=== PATIENT | female | born 1950 | race Caucasian/White ===

== ENCOUNTER 2019-09-09 10:07 | Outpatient (CLI) | payer MEDICARE, SELFPAY ==
--- NOTE | 2019-09-09 10:18 | USCV_ITS ---
Sybil Perry Age: 68 Gender: F : 1950 Exam Date: 09/09/2019 10:33 Ordering Phys: Zeina Toledo MD Technologist: Hamzah Guardado Exam Location: [facility] Indication: MURMUR BP: 122 / 82 HR: 57 Rhythm: Sinus Technical Quality: Good MEASUREMENTS (Male / Female) Normal Values 2D ECHO LV Diastolic Diameter PLAX 3.4 cm 4.2 - 5.9 / 3.9 - 5.3 cm LV Systolic Diameter PLAX 1.8 cm IVS Diastolic Thickness 0.8 cm 0.6 - 1.0 / 0.6 - 0.9 cm IVS Systolic Thickness 1.0 cm LVPW Diastolic Thickness 0.6 cm 0.6 - 1.0 / 0.6 - 0.9 cm LVPW Systolic Thickness 0.9 cm LVOT Diameter 2.1 cm LV Ejection Fraction 2D Teich 78.6 % LV Ejection Fraction MOD 2C 74.3 % LV Ejection Fraction 2C AL 74.3 % LA Diameter 4.2 cm LA Width 3.1 cm LA Height 4.3 cm RA Width 3.1 cm RA Height 3.7 cm Aorta at Sinotubular Diameter 3.5 cm M-MODE LV Diastolic Diameter MM 4.5 cm 4.2 - 5.9 / 3.9 - 5.3 cm LV Systolic Diameter MM 2.7 cm LV Ejection Fraction MM Teich 71.4 % IVS Diastolic Thickness MM 1.3 cm 0.6 - 1.0 / 0.6 - 0.9 cm IVS Systolic Thickness MM 1.6 cm LVPW Diastolic Thickness MM 1.1 cm 0.6 - 1.0 / 0.6 - 0.9 cm LVPW Systolic Thickness MM 1.6 cm RV Diastolic Diameter MM 1.4 cm Aortic Annulus Diameter 3.5 cm LA Ao Ratio MM 1.2 MV E Point Septal Separation 0.8 cm DOPPLER AV Peak Velocity 109.0 cm/s LVOT Peak Velocity 95.0 cm/s AV Area Cont Eq vti 2.7 cm squared AV Area Cont Eq pk 2.9 cm squared MV Area PHT 5.0 cm squared Mitral E to A Ratio 1.1 MV E' Velocity 9.0 cm/s Mitral E to MV E' Ratio 8.8 Mitral E to LV E' Lateral Ratio 9.2 Mitral E to LV E' Septal Ratio 8.4 TR Peak Velocity 109.0 cm/s TR Peak Gradient 4.7 mmHg TV Peak E Velocity 108.0 cm/s Right Atrial Pressure 3.0 mmHg Pulmonary Artery Systolic Pressu 7.8 mmHg PV Peak Velocity 72.0 cm/s FINDINGS Left Ventricle Normal left ventricular size and systolic function, EF 66 %. No regional wall motion abnormalities. Right Ventricle Possibly normal size ejection fraction Right Atrium Appears to be of normal size Left Atrium Appears to be of normal size Mitral Valve Thickened mitral valve. Mild mitral valve regurgitation. Aortic Valve Thickened aortic valve. Trace aortic valve regurgitation. Tricuspid Valve No gross abnormalities noted Pulmonic Valve No gross abnormalities noted Pericardium No pericardial effusion. Aorta Normal aortic annulus size. CONCLUSIONS Normal left ventricular size and systolic function, EF 66 %. No regional wall motion abnormalities. Thickened mitral valve. Mild mitral valve regurgitation. Thickened aortic valve. Trace aortic valve regurgitation. There is no pericardial effusion. There are no intracardiac masses. No previous study is available for comparison. Technically somewhat difficult study because of the poor ultrasonic window. Dr Sunni Rangel MD FACC (Electronically Signed) Final Date: 10 September 2019 13:56 S
== END 2019-09-09 10:08 | disposition home or self-care (01) ==
LOC: RAD 10:12
PROVIDERS: Family Provider Family Medicine; Visit Provider Family Medicine
DX: I08.0 Rheumatic disorders of both mitral and aortic valves (principal); R01.1 Cardiac murmur, unspecified
CPT/HCPCS: 93306

== ENCOUNTER 2020-09-06 12:46 | Outpatient (CLI) | payer MEDICARE, SELFPAY ==
--- NOTE | 2020-09-06 12:57 | MM_ITS ---
WS: [id number] BILATERAL DIGITAL SCREENING MAMMOGRAPHY WITH CAD CLINICAL INFORMATION: SCREENING HISTORY: Screening mammogram. No current complaints. COMPARISON: TECHNIQUE: Bilateral CC and MLO views. FINDINGS: Scattered fibroglandular densities bilaterally. No suspicious focal mass, asymmetry, calcifications, or architectural distortion. No evidence of malignancy. Vascular calcification. MM/[place] [id number] IMPRESSION: BI-RADS: 2-Benign FOLLOW UP: 1 Year Follow-up Recommend return to annual screening mammography.
== END 2020-09-06 12:47 | disposition home or self-care (01) ==
LOC: RADSHAW 12:50
PROVIDERS: Family Provider Family Medicine; PCP Family Medicine; Visit Provider Family Medicine
DX: Z12.31 Encounter for screening mammogram for malignant neoplasm of breast (principal)
CPT/HCPCS: 77067

== ENCOUNTER 2021-12-28 09:49 | Outpatient (CLI) | payer MEDICARE, SELFPAY ==
--- NOTE | 2021-12-28 13:19 | PFTS_ITS ---
Date of Study:12/28/21 Date of Dictation:12/29/2021 MECHANICS: Prebronchodilator forced vital capacity (FVC) is normal. Prebronchodilator forced expiratory volume in one second (FEV1) is normal. FEV1/FVC is normal. There is no postbronchodilator study. LUNG VOLUMES: Total lung capacity (TLC) is normal. Residual volume (RV) is normal. DIFFUSING CAPACITY FOR CARBON MONOXIDE: Normal . INTERPRETATION: The pulmonary function tests are normal. MTDD
== END 2021-12-28 09:50 | disposition home or self-care (01) ==
PROVIDERS: PCP Family Medicine; Visit Provider Family Medicine
DX: R06.02 Shortness of breath (principal)
CPT/HCPCS: 94010; 94726; 94729

== ENCOUNTER 2022-05-30 10:27 | Outpatient (CLI) | payer MEDICARE, SELFPAY ==
--- NOTE | 2022-05-30 10:43 | MM_ITS ---
WS: [id number] BILATERAL SCREENING DIGITAL TOMOSYNTHESIS MAMMOGRAM WITH CAD HISTORY: SCREENING COMPARISON: 09/06/2020, 03/23/2019 Bilateral CC and MLO views with tomosynthesis and synthetic mammography submitted. Computer aided det ection analyzed. Breast composition: There are scattered areas of fibroglandular density. No suspicious masses, microc alcifications or architectural distortion. MM/[id number] IMPRESSION: BI-RADS: 1-Negative FOLLOW UP: 1 Year Follow-up
== END 2022-05-30 10:28 | disposition home or self-care (01) ==
LOC: RAD 10:28
PROVIDERS: PCP Family Medicine; Visit Provider Family Medicine
DX: Z12.31 Encounter for screening mammogram for malignant neoplasm of breast (principal)
CPT/HCPCS: 77063; 77067

== ENCOUNTER → 2022-10-29 15:24 | Outpatient (BNVA) | payer MEDICARE, SELFPAY | PROVIDERS: PCP Family Medicine; Visit Provider Dermatology | DX: R21 Rash and other nonspecific skin eruption (principal) | CPT/HCPCS: 88305; 88312 ==

== ENCOUNTER 2022-11-01 07:22 | Outpatient (CLI) | payer MEDICARE, SELFPAY ==
[2022-11-01 07:52] LABS: Basophils # 0.1 10^3/uL (0.0-0.1); Basophils % 0.8 %; Eosinophils # 0.3 10^3/uL (0.0-0.8); Eosinophils % 3.8 %; Hematocrit 47.1 % (37.0-47.0); Hemoglobin 14.8 g/dL (11.5-15.3); Lymphocytes # 2.4 10^3/uL (0.8-4.8); Lymphocytes % 30.9 %; Mean Corpuscular HGB Conc 31.4 g/dL (30.0-36.0); Mean Corpuscular Hemoglobin 29.2 pg (28.0-34.0); Mean Corpuscular Volume 92.9 fl (81-99); Mean Platelet Volume 10.2 fL (7.4-10.4); Monocytes # 0.6 10^3/uL (0.2-0.9); Neutrophils # 4.29 10^3/uL (1.8-7.7); Neutrophils % 56.2 %; Nucleated Red Blood Cells % 0 %; Platelet Count 226 10^3/cmm (130-400); Red Blood Count 5.07 10^6/uL (4.1-5.3); Red Cell Distribution Width 12.6 % (12.1-15.1); White Blood Count 7.6 10^3/uL (4.0-10.0)
[2022-11-01 08:18] LABS: Alanine Aminotransferase 33 U/L (0-33); Albumin Level 3.9 g/dL (3.5-5.2); Alkaline Phosphatase 93 U/L (35-105); Anion Gap 12.3 (5-19); Aspartate Amino Transferase 27 U/L (0-32); Blood Urea Nitrogen 12 mg/dL (8-23); Calcium 9.4 mg/dL (8.5-10.5); Carbon Dioxide 29 mmol/L (22-29); Chloride 102 mmol/L (98-107); Glomerular Filtration Rate 61.9 mL/min (90-130); Glucose 107 mg/dL (65-115); Osmolality Calculated 288 mOsm/kg (285-295); Potassium 4.3 mmol/L (3.5-5.1); Sodium 139 mmol/L (136-145); Thyroid Stimulating Hormone 2.13 uIU/mL (0.27-4.20); Total Bilirubin 0.4 mg/dL (0.15-1.2); Total Protein 6.9 g/dL (6.6-8.7)
[2022-11-02 14:08] LABS: COMPLEMENT, TOTAL (CH50) 50 U/mL (31-60)
[2022-11-02 15:00] LABS: CENTROMERE B ANTIBODY <1.0 NEG AI (<1.0 NEG); JO-1 ANTIBODY <1.0 NEG AI (<1.0 NEG); RNP ANTIBODY <1.0 NEG AI (<1.0 NEG); SCL-70 ANTIBODY <1.0 NEG AI (<1.0 NEG); SJOGREN'S ANTIBODY (SS-A) <1.0 NEG AI (<1.0 NEG); SM ANTIBODY <1.0 NEG AI (<1.0 NEG); SS-B <1.0 NEG AI (<1.0 NEG)
[2022-11-02 15:05] LABS: COMPLEMENT COMPONENT C3C 157 mg/dL (83-193); COMPLEMENT COMPONENT C4C 64 mg/dL (15-57)
[2022-11-02 15:30] LABS: THYROID PEROXIDASE ANTIBODIES 65 IU/mL (<9)
[2022-11-05 11:00] LABS: ANA SCREEN, IFA POSITIVE (NEGATIVE); Anti-Nuclear AB Pattern #2 Nuclear, Homogeneous; Anti-Nuclear Antibody Titer #2 1:40 titer
[2022-11-06 10:33] LABS: DNA AB (DS) CRITHIDIA,IFA NEGATIVE (NEGATIVE)
== END 2022-11-01 07:23 | disposition home or self-care (01) ==
PROVIDERS: PCP Family Medicine; Visit Provider Dermatology
DX: L29.9 Pruritus, unspecified (principal); R21 Rash and other nonspecific skin eruption; R53.83 Other fatigue
CPT/HCPCS: 36415; 80053; 84439; 84443; 85025; 86160; 86162; 86235; 86255; 86376

== ENCOUNTER → 2023-02-13 13:03 | Outpatient (BNVA) | payer MEDICARE, SELFPAY | PROVIDERS: PCP Family Medicine; Visit Provider Dermatology | DX: L23.9 Allergic contact dermatitis, unspecified cause (principal); D23.71 Other benign neoplasm of skin of right lower limb, including hip; L82.1 Other seborrheic keratosis; D89.89 Other specified disorders involving the immune mechanism, not elsewhere classified; L27.0 Generalized skin eruption due to drugs and medicaments taken internally; L81.4 Other melanin hyperpigmentation | CPT/HCPCS: 99213 ==

== ENCOUNTER 2023-02-23 21:59 | Emergency (ER) | payer MEDICARE, SELFPAY ==
[2023-02-23 22:09] VITALS: BP 198/100; PULSE 57; RESP 22; TEMP 36.1; O2SAT 99; BMI 35.0
--- NOTE | 2023-02-23 22:16 | ECG_ITS ---
[facility] Test Date: 2023-02-23 Pat Name: Sybil Perry Department: Room: Gender: Female Leak Hunter: : 1950 Requested By: Nickolas Manzo Order Number: [id number] Cedric MD: Sunni Rangel M.D. Measurements Intervals [place] Rate: 60 P: -43 CT: 153 QRS: 59 QRSD: 89 T: 72 QT: 408 QTc: 409 Interpretive Statements SINUS RHYTHM No previous ECG available for comparison Electronically Signed On 02-24-2023 14:47:15 CDT by Sunni Rangel M.D. [id number]
--- NOTE | 2023-02-23 22:32 | XRR_ITS ---
PROCEDURE INFORMATION: Exam: XR Chest Exam date and time: 02/23/2023 10:39 PM Age: 72 years old Clinical indication: Pain; Chest pressure; Additional info: Chest pain TECHNIQUE: Imaging protocol: Radiologic exam of the chest. Views: 1 view. COMPARISON: CR XR chest 2V* [id number] 10/22/2016 3:47 PM FINDINGS: Lungs: Lungs are clear bilaterally. Pleural spaces: No pleural effusion. No pneumothorax. Heart/Mediastinum: Stable mild enlargement of the cardiac silhouette. Mediastinal contours are unremarkable. Vasculature: Stable vascular calcifications in the aorta. Bones/joints: Unremarkable for age. XR/XR chest 1V portable [id number] IMPRESSION: 1. No acute cardiopulmonary process. 2. Incidental/nonacute findings are listed in the report.
--- NOTE | 2023-02-23 22:35 | W.ED.CHESTPA ---
HPI - Chest Pain General: Chief Complaint: Chest Pain Stated Complaint: Pain Between her breast Time Seen by Provider: 02/23/23 22:32 History of Present Illness: 72-year-old female comes in today with chest discomfort. Patient reports pain is upper mid epigastric or low sternal pain. Pain is reproducible with palpation in the mid upper abdomen. Patient appears nontoxic. Patient appears in moderate pain. Patient has a history of hypertension, GERD, and high cholesterol. Patient denies smoking, diabetes, alcohol or drug use. Patient reports no abdominal surgeries. Associated symptoms: Reports nausea; Deny dyspnea, fever(s) or vomiting Review of Systems General: Reports: 10 or more systems reviewed and unremarkable except in HPI and below Const: Denies: fever(s) or chills Card: Reports: chest pain Resp: Denies: dyspnea GI: Reports: nausea; Denies: vomiting, diarrhea or constipation : Denies: difficulty voiding Musc: Denies: back pain Skin/Breast: Denies: rash PFSH ED PFSH: Medical History Hypertension Physical Exam Const: COMMON NORMALS: alert HENMT: COMMON NORMALS: normocephalic HEAD & SCALP: normocephalic Neck/C-Spine: COMMON NORMALS: full ROM Chest: COMMONS NORMALS: normal inspection of the chest CHEST: Yes tenderness (Lower midsternal) sternum Resp: COMMON NORMALS: normal respiratory effort and clear to auscultation bilaterally AUSCULTATION: clear to auscultation bilaterally Cardio: COMMON NORMALS: regular rate and regular rhythm RATE: regular rate RHYTHM: regular rhythm GI: AUSCULTATION: Yes normoactive bowel sounds PALPATION: Yes Tenderness to palpation present (GI) (Midepigastric) : COMMON NORMALS: Yes no CVA tenderness BLADDER/KIDNEY EXAM: Yes no CVA tenderness Back/Pelvis: COMMON NORMALS: no CVA tenderness Extremity: COMMON NORMALS: full ROM Neuro: SENSORIUM/ORIENTATION: Yes alert Skin: COMMON NORMALS: turgor normal GENERAL SKIN EXAM: turgor normal Course Vital Signs: Vital signs: Vital Signs Temperature 97.0 F L 02/23/23 22:09 Pulse Rate 59 L 02/24/23 01:35 Respiratory Rate 16 02/24/23 01:35 Blood Pressure 135/76 02/24/23 01:35 Pulse Oximetry 95 02/24/23 01:35 Oxygen Delivery Me thod Room Air 02/23/23 22:09 MDM - Chest Pain Medical Decision Making 72-year-old female was brought in today for concerns of sternal chest discomfort and upper abdomen pain. Patient reports symptoms started this evening about 1 to 2 hours prior to arrival. Nothing improves pain and nothing made it worse. Patient reported the pain was like pressure in the chest. Respirations were even lungs are clear to auscultation. Abdomen was soft with some mid epigastric tenderness. Bowel sounds were present. Skin was warm and dry. Vital signs were normal except for elevation in blood pressure. Differential diagnosis includes but not limited to hiatal hernia, gastritis, pancreatitis, gallbladder disease, PE, ACS. Laboratory values had some mild increase in the AST's and alkaline phosphatase, sodium was 132, creatinine was 1.0. Urinalysis was unremarkable. Troponin was negative for cardiac damage. Chest x-ray was unremarkable. CT of the chest and abdomen noted some atelectasis in the lung mirza, distended gallbladder, and some abnormal thickened endometrial stripe with a 2.5 cm cyst in the left adnexa this is concerning for possible malignancy and recommend follow-up with [employer] [facility] and ultrasound. This was reviewed with patient who reported understanding of plan of care. Case management was requested to help patient follow-up with [employer] [facility] due to the abnormalities on the CT of the pelvis and concerns for uterine carcinoma. Also recommended follow-up with surgeon for further evaluation of gallbladder for possible gallbladder colic and dysfunction. Patient reported understanding agreed to plan. Lab Data 02/23/23 22:35 02/23/23 22:35 Radiology Impressions Chest X-Ray 02/23/23 22:32 IMPRESSION: 1. No acute cardiopulmonary process. 2. Incidental/nonacute findings are listed in the report. Chest/Abdomen/Pelvis CT 02/24/23 00:11 IMPRESSION: 1. No pulmonary embolus. 2. Minimal infiltrates or atelectasis bilaterally in the lower lobes. Correlate for pneumonia. IMPRESSION: Abnormally thickened endometrial stripe measuring 3.4 cm suspicious for malignancy. There is also a 2.5 cm cyst in the left adnexa. These are abnormal in a patient of this age and further assessment with pelvic ultrasound is recommended for follow-up. Laboratory Results WBC 8.6 10^3/uL (4.0-10.0) 02/23/23 22: RBC 4.85 10^6/uL (4.1-5.3) 02/23/23 22:35 Hgb 14.2 g/dL (11.5-15.3) 02/23/23 22:35 Hct 43.8 % (37.0-47.0) 02/23/23 22:35 MCV 90.3 fl (81-99) 02/23/23 22:35 MCH 29.3 pg (28.0-34.0) 02/23/23 22: MCHC 32.4 g/dL (30.0-36.0) 02/23/23: RDW 12.6 % (12.1-15.1) 02/23/23:35 Plt Count 184 10^3/cmm (130-400) 02/23/23 22: MPV 10.1 fL (7.4-10.4) 02/23/23 22:35 Neut % (Auto) 63.7 % 02/23/23 22:35 Lymph % (Auto) 25.4 % 02/23/23 22:35 [place] % (Auto) 7.0 % 02/23/23 22:35 Eos % (Auto) 2.9 % 02/23/23 22:35 Baso % (Auto) 0.6 % 02/23/23:35 Neut # (Auto) 5.46 10^3/uL (1.8-7.7) 02/23/23 22:35 Lymph # (Auto) 2.2 10^3/uL (0.8-4.8) 02/23/23 22:35 [place] # (Auto) 0.6 10^3/uL (0.2-0.9) 02/23/23 22:35 Eos # (Auto) 0.3 10^3/uL (0.0-0.8) 02/23/23 22:35 Baso # (Auto) 0.1 10^3/uL (0.0-0.1) 02/23/23 22:35 Nucleated RBC % (auto) 0 % 02/23/23:35 Nucleated RBCs # 0.0 /100WBC 02/23/23 22:35 Sodium 132 mmol/L (136-145) L 02/23/23 22:35 Potassium 4.0 mmol/L (3.5-5.1) 02/23/23 22:35 Chloride 97 mmol/L (98-107) L 02/23/23 22:35 Carbon Dioxide 27 mmol/L (22-29) 02/23/23 22:35 Anion Gap 12.0 (5-19) 02/23/23 22:35 BUN 17 mg/dL (8-23) 02/23/23 22:35 Creatinine 1.0 mg/dL (0.5-0.9) H 02/23/23 22:35 GFR Calculation Not Reportable 02/23/23 22:35 Glucose 111 mg/dL (65-115) 02/23/23 22:35 Calculated Osmolality 276 mOsm/kg (285-295) L 02/23/23 22:35 Calcium 8.9 mg/dL (8.5-10.5) 02/23/23 22:35 Total Bilirubin 0.2 mg/dL (0.15-1.2) 02/23/23 22:35 AST 28 U/L (0-32) 02/23/23 22:35 ALT 36 U/L (0-33) H 02/23/23 22:35 Alkaline Phosphatase 108 U/L (35-105) H 02/23/23 22:35 Troponin T Baseline 7 ng/L (0-10) 02/23/23 22:35 Troponin T 120 Minute 6.29 ng/L (0-10) 02/24/23 00:12 Delta Troponin T -0.71 ABS# (0-10) L 02/24/23 00:12 Total Protein 6.8 g/dL (6.6-8.7) 02/23/23 22:35 Albumin 4.1 g/dL (3.5-5.2) 02/23/23 22:35 Globulin 2.7 g/dL (1.3-4.6) 02/23/23 22:35 Lipase 23 U/L (13-60) 02/23/23 22:35 Discharge Plan Discharge Patient Disposition: Home Clinical Impression: Dysfunctional gallbladder, Abnormal abdominal CT scan Condition: Stable Prescriptions: New dicyclomine 10 mg capsule 10 mg PO QID PRN (Reason: gall bladder discomfort) Qty: 20 0RF No Action metoprolol succinate 100 mg tablet extended release 24 hr 100 mg PO DAILY omeprazole 20 mg capsule,delayed release(DR/EC) 20 mg PO DAILY triamcinolone acetonide 0.1 % ointment 1 applic topical BID Qty: 80 1RF Rx Instructions: apply to affected area twice a day, not for face or groin. Discharge Orders: Discharge ED (Routine); Ordered 02/24/23 Ordered By: Georges Valdez Referrals: Zeina Toledo MD [Primary Care Provider] - Discharge Diet: Usual diet Discharge Activity: Increase activity as tolerated Patient Instructions: Biliary Colic (ED) Activity Restrictions/Additional Instructions: Home and rest. Light diet. Drink plenty of water and fluids. Avoid eating 3 hours before bedtime. Follow-up with primary care for further instructions. Case management will contact you regarding follow-up appointment with surgeon for further evaluation and treatment of probable gallbladder colic. You also need referral to [facility] [employer] [facility] for further evaluation of abnormality of uterus on CT scan. Coding Level of Care Code ED Tax Commissioner for Konstantin Bertrand
[2023-02-23 22:43] LABS: Basophils # 0.1 10^3/uL (0.0-0.1); Basophils % 0.6 %; Eosinophils # 0.3 10^3/uL (0.0-0.8); Eosinophils % 2.9 %; Hematocrit 43.8 % (37.0-47.0); Hemoglobin 14.2 g/dL (11.5-15.3); Lymphocytes # 2.2 10^3/uL (0.8-4.8); Lymphocytes % 25.4 %; Mean Corpuscular HGB Conc 32.4 g/dL (30.0-36.0); Mean Corpuscular Hemoglobin 29.3 pg (28.0-34.0); Mean Corpuscular Volume 90.3 fl (81-99); Mean Platelet Volume 10.1 fL (7.4-10.4); Monocytes # 0.6 10^3/uL (0.2-0.9); Neutrophils # 5.46 10^3/uL (1.8-7.7); Neutrophils % 63.7 %; Nucleated Red Blood Cells % 0 %; Platelet Count 184 10^3/cmm (130-400); Red Blood Count 4.85 10^6/uL (4.1-5.3); Red Cell Distribution Width 12.6 % (12.1-15.1); White Blood Count 8.6 10^3/uL (4.0-10.0)
[2023-02-23 23:03] LABS: Troponin(5th) Baseline 7 ng/L (0-10)
[2023-02-23] MEDS: ondansetron 2 mg/ML SDV 2 mL 4 MG IVP (23:03)
[2023-02-23] MEDS: morphine 4 mg/mL SDV 1 mL IVP (23:03)
[2023-02-23 23:04] LABS: Alanine Aminotransferase 36 U/L (0-33); Albumin Level 4.1 g/dL (3.5-5.2); Alkaline Phosphatase 108 U/L (35-105); Aspartate Amino Transferase 28 U/L (0-32); Blood Urea Nitrogen 17 mg/dL (8-23); Calcium 8.9 mg/dL (8.5-10.5); Carbon Dioxide 27 mmol/L (22-29); Chloride 97 mmol/L (98-107); Globulin 2.7 g/dL (1.3-4.6); Glucose 111 mg/dL (65-115); Lipase 23 U/L (13-60); Osmolality Calculated 276 mOsm/kg (285-295); Sodium 132 mmol/L (136-145); Total Bilirubin 0.2 mg/dL (0.15-1.2); Total Protein 6.8 g/dL (6.6-8.7)
[2023-02-23 23:08] VITALS: BP 222/104
[2023-02-23] MEDS: nitroglycerin 1 gm/inch oint Pkt 1 INCH TOPICAL (23:08)
[2023-02-23 23:16] VITALS: BP 205/104; PULSE 55; RESP 16; O2SAT 99
--- NOTE | 2023-02-24 00:11 | CTR_ITS ---
PROCEDURE INFORMATION: Exam: CTA Chest With Contrast Exam date and time: 02/24/2023 12:28 AM Age: 72 years old Clinical indication: Pain and abnormal findings; Abnormal lab test; Elevated liver enzymes; Other: N/a; Sternal or substernal pain; Patient HX: Substernal cp with mild tachypnea and nausea. Alt of 36. ; Additional info: Chest pain TECHNIQUE: Imaging protocol: Computed tomographic angiography of the chest with contrast. Exam focused on the arteries. 3D rendering (Not supervised by radiologist): MIP and/or 3D reconstructed images were created by the technologist. Radiation optimization: All CT scans at this facility use at least one of these dose optimization techniques: automated exposure control; mA and/or kV adjustment per patient size (includes targeted exams where dose is matched to clinical indication); or iterative reconstruction. Contrast material: OMNI 350; Contrast volume: 100 ml; Contrast route: INTRAVENOUS (IV); REPORTING DATA: Count of CT and Cardiac NM exams in prior 12 months: This patient has received 0 known CTs and 0 known cardiac nuclear medicine studies in the 12 months prior to the current study. COMPARISON: CR (CHEST, ) 02/23/2023 10:39 PM RADIATION DOSE METRICS: Total DLP (mGy-cm): 1394.19 FINDINGS: Pulmonary arteries: Normal. No pulmonary emboli. Aorta: Ectatic ascending aorta to 3.9 cm. Lungs: Minimal infiltrates or atelectasis bilaterally in the lower lobes. Pleural spaces: Unremarkable. No pneumothorax. No pleural effusion. Heart: Right-sided pericardial cyst measuring 4.2 cm versus fluid in a pericardial recess. Lymph nodes: Unremarkable. No enlarged lymph nodes. Bones/joints: Unremarkable. No acute fracture. Soft tissues: Unremarkable. PROCEDURE INFORMATION: Exam: CT Abdomen And Pelvis With Contrast Exam date and time: 02/24/2023 12:28 AM Age: 72 years old Clinical indication: Pain and abnormal findings; Abnormal lab test; Elevated liver enzymes; Other: N/a; Sternal or substernal pain; Patient HX: Substernal cp with mild tachypnea and nausea. Alt of 36. ; Additional info: Chest pain TECHNIQUE: Imaging protocol: Computed tomography of the abdomen and pelvis with contrast. Radiation optimization: All CT scans at this facility use at least one of these dose optimization techniques: automated exposure control; mA and/or kV adjustment per patient size (includes targeted exams where dose is matched to clinical indication); or iterative reconstruction. Contrast material: OMNI 350; Contrast volume: 100 ml; Contrast route: INTRAVENOUS (IV); REPORTING DATA: Count of CT and Cardiac NM exams in prior 12 months: This patient has received 0 known CTs and 0 known cardiac nuclear medicine studies in the 12 months prior to the current study. COMPARISON: CR XR sacroiliac jts m 3V [id number] 10/22/2016 4:30 PM RADIATION DOSE METRICS: Total DLP (mGy-cm): 1394.19 FINDINGS: Liver: Normal. No mass. Gallbladder and bile ducts: Nonspecific mildly distended gallbladder. Pancreas: Normal. No ductal dilation. Spleen: Normal. No splenomegaly. Adrenal glands: Normal. No mass. Kidneys and ureters: Normal. No hydronephrosis. Stomach and bowel: Unremarkable. No obstruction. No mucosal thickening. Appendix: No evidence of appendicitis. Intraperitoneal space: Unremarkable. No free air. No significant fluid collection. Vasculature: Normal for age. No abdominal aortic aneurysm. Lymph nodes: Unremarkable. No enlarged lymph nodes. Urinary bladder: Unremarkable as visualized. Reproductive: Left adnexal cyst measures 2.5 cm. Abnormally thickened endometrial stripe measuring 3.4 cm. Bones/joints: Unremarkable. No acute fracture. Soft tissues: Unremarkable. CT/CT angio chest w abd pel w con IMPRESSION: 1. No pulmonary embolus. 2. Minimal infiltrates or atelectasis bilaterally in the lower lobes. Correlate for pneumonia. IMPRESSION: Abnormally thickened endometrial stripe measuring 3.4 cm suspicious for malignancy. There is also a 2.5 cm cyst in the left adnexa. These are abnormal in a patient of this age and further assessment with pelvic ultrasound is recommended for follow-up.
[2023-02-24] MEDS: lidocaine 2% viscous 15 ML, aluminum-mag hydrox-simethicon 30 ML, sucralfate oral liq 1 GM PO (00:41)
[2023-02-24 00:43] VITALS: BP 148/73; PULSE 56; RESP 16; O2SAT 95
[2023-02-24] MEDS: iohexol 350 mg/mL 500 mL Btl (per mL) IV (00:43)
[2023-02-24 00:51] LABS: Troponin 5 2HR 6.29 ng/L (0-10)
[2023-02-24 00:53] LABS: Troponin 5 2HR Delta -0.71 ABS# (0-10)
[2023-02-24 01:04] VITALS: BP 135/69; PULSE 55; RESP 16; O2SAT 95
[2023-02-24 01:35] VITALS: BP 135/76; PULSE 59; RESP 16; O2SAT 95
--- NOTE | 2023-02-24 02:01 | PC.NURSE ---
RN went to administer ordered morphine to pt at 0045. Pt stated, I am feeling fine after the drink you gave me. I don't need it yet. RN returned medication to [facility] at 0200. Unable to document refusal in OCT.
[2023-02-24 02:04] VITALS: BP 135/76; PULSE 59; RESP 16; TEMP 36.1; O2SAT 95
--- NOTE | 2023-02-25 09:56 | PC.SOCIAL ---
Addendum entered by Annita Nichols 03/06/23 15:28: Patient had a follow up appointment scheduled with [facility] - patient did attend appointment. Addendum entered by Annita Nichols 03/06/23 15:27: application support manager received the following message from the general surgery clinic regarding follow up appointment: declines - going another route first Original Note: PUBLIC RELATIONS and General surgery referrals Referrals sent to both clinics at this time; clinics to contact patient with appt date/time.
== END 2023-02-24 02:05 | disposition home or self-care (01) ==
PROVIDERS: Emergency Provider Nurse Practitioner Family; PCP Family Medicine
DX: K82.8 Other specified diseases of gallbladder (principal); R93.5 Abnormal findings on diagnostic imaging of other abdominal regions, including retroperitoneum; I10 Essential (primary) hypertension
CPT/HCPCS: 36415; 71045; 71275; 74177; 80053; 83690; 84484; 85025; 93005; 96374; 96375; 99285; J2270; J2405; Q9967

== ENCOUNTER → 2023-03-07 09:32 | Outpatient (BNVA) | payer MEDICARE, SELFPAY | PROVIDERS: PCP Family Medicine; Visit Provider Internal Medicine | DX: R76.8 Other specified abnormal immunological findings in serum (principal); L40.9 Psoriasis, unspecified; M45.0 Ankylosing spondylitis of multiple sites in spine; M25.50 Pain in unspecified joint | CPT/HCPCS: 36415; 72040; 72072; 72100; 72202; 73120; 83516; 84439; 84443; 85651; 86140; 86200; 86431; 86704; 86803; 86812; 87340; 99204 ==

== ENCOUNTER 2023-03-18 08:03 | Outpatient (CLI) | payer MEDICARE, SELFPAY ==
--- NOTE | 2023-03-18 08:15 | US_ITS ---
WS: [id number] ULTRASOUND PELVIS TECHNIQUE: Transabdominal and transvaginal. ULTRASOUND PELVIS TECHNIQUE: Transabdominal. CLINICAL INFORMATION: R93.89 - Abnormal findings on diagnostic imaging of other... : No. COMPARISON: CT chest abdomen pelvis February 24, 2023 FINDINGS: Uterus Orientation: Anteverted. Size: 7.2 cm x 3.8 cm x 4.0 cm. Cervix: Incidental nabothian cysts in the cervix. Endometrium: Thickened complex endometrium as seen on the prior CT Endometrium thickness: 30 mm. Adnexa: LEFT ovarian cyst measuring 2.5 x 2.1 x 2.0 cm RIGHT ovary not identified. Left ovary size: 4.1 cm x 2.3 cm x 2.3 cm. Left ovary volume: 11.6 ccm3 Free fluid: Small amount of free fluid in the cul-de-sac. Other findings: None. US/US pelv w/transvag [id number] IMPRESSION: 1. Thickened complex endometrium measuring up to 30 mm with cystic change abno rmal in a patient this age. Findings suspicious for neoplasia versus hyperplasi a. Recommend [employer] consultation for further assessment 2. Simple LEFT ovarian cyst measuring 2.5 x 2.1 x 2.0 CM. 3. RIGHT ovary is not identified. 4. Trace free fluid in the cul-de-sac.
== END 2023-03-18 08:04 | disposition home or self-care (01) ==
PROVIDERS: PCP Family Medicine; Visit Provider Obstetrics & Gynecology
DX: R93.89 Abnormal findings on diagnostic imaging of other specified body structures (principal); N83.292 Other ovarian cyst, left side
CPT/HCPCS: 76830; 76856

== ENCOUNTER → 2023-04-09 09:40 | Outpatient (BNVA) | payer MEDICARE, SELFPAY | PROVIDERS: PCP Family Medicine; Visit Provider Internal Medicine | DX: R76.8 Other specified abnormal immunological findings in serum (principal); M25.50 Pain in unspecified joint; M25.60 Stiffness of unspecified joint, not elsewhere classified; Z15.89 Genetic susceptibility to other disease | CPT/HCPCS: 99214 ==

== ENCOUNTER 2023-05-09 08:23 | Day surgery (SDC) | payer MEDICARE, SELFPAY ==
[2023-05-08 09:06] VITALS: BMI 35.5
--- NOTE | 2023-05-09 05:26 | W.PM.OPSFHP ---
Same Day Surgery H&P Indication for Procedure/HPI DATE OF PROCEDURE: May 09, 2023 CHIEF COMPLAINT/INDICATIONFOR SURGICAL PROCEDURE: abnormal endometrium on ultrasound PREOP DIAGNOSIS: abnormal endometrium on ultrasound PLANNED PROCEDURE: Operation Date: 05/09/23 10:05 Proposed Procedures p Hysteroscopy, endometrial sampling, possible endometrial polypectomy 35022,R93.89(Not Applicable) - Ken Kay MD s poss Poylpectomy(Not Applicable) - Ken Kay MD 72 y.o. G0 LNMP at 51 y.o. No bleeding or spotting since LNMP Was seen in ER for abdominal pain February 23, [address] scan of abdomen and pelvis which showed a thickened endometrium Pelvic sono done 03-18-23 Normal-sized uterus Endometrium 3 cm, appears complex cystic changes 2.5 cm left ov cyst Right ov not seen Now scheduled for hysteroscopy, endometrial sampling, possible endometrial polypectomy PMHx: none PSHx: knee Medications/Allergies* Home Medications Medication Instructions Recorded Confirmed Type metoprolol succinate 100 mg 100 mg PO DAILY 09/17/22 05/08/23 History tablet,extended release 24 hr atorvastatin 20 mg tablet 20 mg PO DAILY 03/06/23 05/08/23 History famotidine 20 mg tablet 40 mg PO DAILY 03/06/23 05/08/23 History levothyroxine 125 mcg tablet 125 mcg PO DAILY 03/06/23 05/08/23 History meloxicam 7.5 mg tablet 7.5 mg PO DAILY 04/09/23 05/08/23 History Allergies/Adverse Reactions Allergy/AdvReac Type Severity Reaction Status Date / Time Penicillanic Sulfone BL Allergy Mild ADR-Abdominal Verified 05/08/23 09:04 Beta-Lactam Pain Pertinent History/Comorbid Conditions* Medical History (Updated 03/29/23 @ 01:19 by Ken Kay MD) Arthralgia Hypertension Positive antinuclear antibody Family History (Updated 03/20/23 @ 14:00 by Yuliana Bradley LPN) Colon cancer Family/Other paternal uncle Diabetes Sister Heart disease Mother Hypertension Sister Mother Stroke Grandmother maternal Denies family history of Ovarian cancer Hyperlipidemia Breast cancer Uterine cancer Thyroid condition Pertinent Exam Findings alert, oriented x 3, clear to auscultation bilaterally and regular rate & rhythm Pertinent Data Pelvic sono done 03-18-23 Normal-sized uterus Endometrium 3 cm, appears complex cystic changes 2.5 cm left ov cyst Right ov not seen Recommendations Surgery/Procedure today Coding Level of Care Code Acute Code for Chg Fwd Diagnoses Time Spent (min) 20
[2023-05-09 08:41] VITALS: BP 193/114; PULSE 66; RESP 18; TEMP 36.8; O2SAT 97
[2023-05-09] MEDS: sodium chloride 0.9% 1,000 ML 30 ML IV (09:03)
--- NOTE | 2023-05-09 09:41 | W.PM.OPSUD ---
Surgery/Procedure H&P Update DATE OF PROCEDURE: May 09, 2023 DATE H&P PERFORMED: 05/09/23 H&P UPDATE INFORMATION: I have reviewed H&P completed within last 30 days, I have examined patient prior to procedure and No changes to prior documentation PREOP DIAGNOSIS: abnormal endometrium on ultrasound PLANNED PROCEDURE: Operation Date: 05/09/23 10:05 Proposed Procedures p Hysteroscopy, endometrial sampling, possible endometrial polypectomy 79879,R93.89(Not Applicable) - Ken Kay MD s poss Poylpectomy(Not Applicable) - Ken Kay MD
--- NOTE | 2023-05-09 10:23 | ANES.PREANE2 ---
Pre-Anesthetic Assessment Height/Weight: Height 1.68 m Weight 99.79 kg Temp Pulse Resp BP Pulse Ox O2 Del Method 98.3 F 66 18 193/114 97 Room Air 05/09/23 08:41 05/09/23 08:41 05/09/23 08:41 05/09/23 08:41 05/09/23 08:41 05/09/23 08:42 Preop Diagnosis: abnormal endometrium on ultrasound Operation Date: 05/09/23 10:05 Proposed Procedures p Hysteroscopy, endometrial sampling, possible endometrial polypectomy 28967,R93.89(Not Applicable) - Ken Kay MD s poss Poylpectomy(Not Applicable) - Ken Kay MD Familial anesthetic complications: none Was Beta Yao taken within 24 hours: Yes Was Clonidine taken within 24 hours: N/A Last intake: Intake Last Liquid Date 05/08/23 Last Liquid Time 22:00 Last Solid Date 05/08/23 Last Solid Time 20:00 Social No alcohol and No tobacco Exam alert, oriented x 3, clear to auscultation bilaterally and regular rate & rhythm Airway Submandibular: within normal limits Cervical ROM: within normal limits Mallampati: Class II Dentition: full CV/HEM Hypertension Metabolic Hyperlipidemia, Morbid Obesity and Thyroid Disease Anesthetic Plan ASA status: 2 Anesthesia: General Medications/Allergies Home Medications Medication Instructions Recorded Confirmed Last Taken Type metoprolol succinate 100 mg 100 mg PO DAILY 09/17/22 05/08/23 05/08/23 History tablet,extended release 24 hr dicyclomine 10 mg capsule 10 mg PO QID PRN gall bladder 02/24/23 05/08/23 Unknown Rx discomfort #20 caps atorvastatin 20 mg tablet 20 mg PO DAILY 03/06/23 05/08/23 05/08/23 History famotidine 20 mg tablet 40 mg PO DAILY 03/06/23 05/08/23 05/08/23 History levothyroxine 125 mcg tablet 125 mcg PO DAILY 03/06/23 05/09/23 05/09/23 History meloxicam 7.5 mg tablet 7.5 mg PO DAILY 04/09/23 05/08/23 05/08/23 History sulfasalazine 500 mg tablet 0.5 g PO DAILY #60 tabs 04/12/23 05/08/23 05/08/23 Rx Allergies Allergy/AdvReac Type Severity Reaction Status Date / Time Penicillanic Sulfone BL Allergy Mild ADR-Abdominal Verified 05/08/23 09:04 Beta-Lactam Pain Current Medications Generic Name Dose Route Start Last Admin Trade Name Marina PRN Reason Stop Dose Admin Sodium Chloride 1,000 mls @ 30 mls/hr 05/09/23 08:30 05/09/23 09:03 Sodium Chloride 0.9% IV 05/10/23 08:29 30 mls/hr .Q24H SYLVESTER Administration PFSH Anesthesia Medical History Arthralgia Hypertension Positive antinuclear antibody Family History Family/Other Colon cancer paternal uncle Sister Diabetes Hypertension Mother Heart disease Hypertension Grandmother Stroke maternal Denies family history of Ovarian cancer Hyperlipidemia Breast cancer Uterine cancer Thyroid condition Data Anesthesia Cardiac Studies: Echocardiogram Ultrasound 09/09/19
[2023-05-09 11:02] VITALS: BP 169/93; PULSE 71; RESP 16; TEMP 36.3; O2SAT 98
[2023-05-09 11:06] VITALS: BP 159/98; PULSE 69; RESP 16; O2SAT 100
[2023-05-09 11:14] VITALS: BP 175/96; PULSE 69; RESP 16; O2SAT 99
[2023-05-09 11:20] VITALS: BP 169/95; PULSE 65; RESP 16; O2SAT 98
[2023-05-09] MEDS: acetaminophen 325 mg Tablet 650 MG PO (11:59)
[2023-05-09 12:00] VITALS: BP 161/97; PULSE 62; RESP 16; O2SAT 96
--- NOTE | 2023-05-09 12:05 | PM.OP ---
Operative Report Date of procedure: May 09, 2023 Pre-op diagnosis: Thickened complex endometrium on CT scan and pelvic sono Post-op diagnosis: same Post-op findings: moderate endometrial tissue + multiple polyps + abnormal vessels Procedure done: hysteroscopy Endometrial sampling with Myosure Endometrial polypectomy with Myosure Curettage of uterus Implants: none Specimens removed/disposition: endometrial tissue Surgeon: Ken Kay MD Anesthesia: General Estimated blood loss (mL): 0 Complications: none Condition: stable Disposition: PACU Brief History: 72 y.o. G0 No bleeding or spotting since LNMP Had CT scan of abdomen and pelvis and pelvic sono which showed a thickened and cystic endometrium scheduled for hysteroscopy, endometrial sampling, possible endometrial polypectomy Procedure: Informed consent signed. Patient was taken to the operating room. Anesthesia was induced. Patient was placed in dorsolithotomy position, prepped and draped for hysteroscopy. A bivalve speculum was placed in the vagina. The anterior lip of the cervix was grasped with a sharp-toothed tenaculum. The cervix was serially dilated with Hegar dilators. . A hysteroscope was placed into the endometrial cavity. The endometrial cavity was seen moderate amount of endometrial tissue. There were multiple polyps. Various blood vessels of different caliber were seen. A Myosure was then inserted and the endometrium was sampled, removing as much of the endometrium and polyps as possible. The endometrial cavity was seen to be intact. The hysteroscope and Myosure were then removed. Endometrial curettage was done with a sharp curette. Endometrial tissue was sent to pathology. The sharp-toothed tenaculum was removed. There was no bleeding from the endometrial cavity or cervix. The patient was then placed supine and awakened and taken to the PACU. Postop condition: stable EBL: none Sponge and instruments counts were normal x 2 Complications: none
--- NOTE | 2023-05-09 14:05 | ANE.PACU2 ---
Inpatient post-anesthesia follow up: Airway intact: Yes Vital signs: Temperature 97.3 F Pulse Rate 62 Respiratory Rate 16 Blood Pressure 161/97 Pulse Oximetry 96 Oxygen Delivery Me thod Room Air Oxygen Flow Rate 6 Fraction of Inspir ed Oxygen Hydration adequate: Yes Nausea and vomiting: No Pain level: 3 Mental status: Baseline
== END 2023-05-09 12:00 | disposition home or self-care (01) ==
PROVIDERS: PCP Family Medicine; Visit Provider Obstetrics & Gynecology
PROC: 0UJD8ZZ Inspection of Uterus and Cervix, Via Natural or Artificial Opening Endoscopic (ICD-10-PCS; CPT 58555; principal; 2023-05-09 09:55)
PROC: (CPT 58558; 2023-05-09 09:55)
DX: R93.89 Abnormal findings on diagnostic imaging of other specified body structures (principal); I10 Essential (primary) hypertension; E78.5 Hyperlipidemia, unspecified; E66.01 Morbid (severe) obesity due to excess calories; Z68.35 Body mass index [BMI] 35.0-35.9, adult
CPT/HCPCS: 58558; 88305; J2405; J2704; J3010; J7030

== ENCOUNTER 2023-06-28 13:08 | Outpatient (CLI) | payer MEDICARE, SELFPAY ==
--- NOTE | 2023-06-28 13:11 | MM_ITS ---
WS: [id number] BILATERAL 3D TOMOSYNTHESIS DIGITAL SCREENING MAMMOGRAPHY WITH CAD CLINICAL INFORMATION: SCREENING HISTORY: Screening mammogram. No current complaints. COMPARISON: 2021 TECHNIQUE: Bilateral CC and MLO views. FINDINGS: Scattered fibroglandular densities bilaterally. No suspicious focal mass, asymmetry, calcifications, or architectural distortion. No evidence of malignancy. Few incidental punctate calcifications. IMPRESSION: MM/[place] [id number] BI-RADS: 2-Benign FOLLOW UP: 1 Year Follow-up Recommend return to annual screening mammography.
== END 2023-06-28 13:09 | disposition home or self-care (01) ==
LOC: RAD 13:08
PROVIDERS: PCP Family Medicine; Visit Provider Family Medicine
DX: Z12.31 Encounter for screening mammogram for malignant neoplasm of breast (principal)
CPT/HCPCS: 77063; 77067

== ENCOUNTER → 2023-08-05 10:26 | Outpatient (BNVA) | payer MEDICARE, SELFPAY | PROVIDERS: PCP Family Medicine; Visit Provider Internal Medicine | DX: R76.8 Other specified abnormal immunological findings in serum (principal); M25.50 Pain in unspecified joint; M54.81 Occipital neuralgia | CPT/HCPCS: 36415; 80053; 85025; 85651; 86140; 99214 ==

== ENCOUNTER → 2023-09-17 09:26 | Outpatient (BNVA) | payer MEDICARE, SELFPAY | PROVIDERS: PCP Family Medicine; Referring Provider Internal Medicine; Visit Provider Anesthesiology Pain Medicine | DX: M54.12 Radiculopathy, cervical region (principal); M47.812 Spondylosis without myelopathy or radiculopathy, cervical region | CPT/HCPCS: 99204 ==

== ENCOUNTER 2023-09-18 08:19 | Outpatient (CLI) | payer MEDICARE, SELFPAY ==
--- NOTE | 2023-09-18 08:24 | XR_ITS ---
WS: [id number] XR cervical spine 3V* [id number] REASON FOR EXAM: M54.12 - Radiculopathy, cervical region FINDINGS: Straightening of the normal lordosis of the cervical spine. No focal vertebral body abnormality. Moderate narrowing of the intervertebral disc space at C5-C6 and C6-C7 with moderate anterior and unc inate osteophytosis. 2 to 3 mm of anterolisthesis of C4 on C5. The cervical spine is unchanged compared to 03/07/2023. IMPRESSION: Stable cervical spine with moderate to significant degenerative spondylosis.
== END 2023-09-18 08:20 | disposition home or self-care (01) ==
LOC: RAD 08:21
PROVIDERS: PCP Family Medicine; Visit Provider Anesthesiology Pain Medicine
DX: M47.22 Other spondylosis with radiculopathy, cervical region (principal)
CPT/HCPCS: 72040

== ENCOUNTER → 2024-01-22 12:20 | Outpatient (BNVA) | payer MEDICARE, SELFPAY | PROVIDERS: PCP Family Medicine; Visit Provider Obstetrics & Gynecology | DX: N83.202 Unspecified ovarian cyst, left side (principal) | CPT/HCPCS: 76830 ==

== ENCOUNTER → 2024-02-13 10:51 | Outpatient (BNVA) | payer MEDICARE, SELFPAY | PROVIDERS: PCP Family Medicine; Visit Provider Nurse Practitioner Family | DX: L57.0 Actinic keratosis (principal); L91.8 Other hypertrophic disorders of the skin; L57.8 Other skin changes due to chronic exposure to nonionizing radiation; L81.4 Other melanin hyperpigmentation; L82.1 Other seborrheic keratosis | CPT/HCPCS: 17000; 17110; 99213 ==

== ENCOUNTER → 2024-03-04 10:27 | Outpatient (BNVA) | payer MEDICARE, SELFPAY | PROVIDERS: PCP Family Medicine; Visit Provider Internal Medicine Rheumatology | DX: G95.89 Other specified diseases of spinal cord (principal); M47.816 Spondylosis without myelopathy or radiculopathy, lumbar region; M47.814 Spondylosis without myelopathy or radiculopathy, thoracic region | CPT/HCPCS: 72072; 72100; 72202; 99215 ==

== ENCOUNTER → 2024-07-02 14:20 | Outpatient (BNVA) | payer MEDICARE, SELFPAY | PROVIDERS: PCP Family Medicine; Visit Provider Internal Medicine Rheumatology | DX: R76.8 Other specified abnormal immunological findings in serum (principal); Z15.89 Genetic susceptibility to other disease; M47.812 Spondylosis without myelopathy or radiculopathy, cervical region; M47.816 Spondylosis without myelopathy or radiculopathy, lumbar region; M47.814 Spondylosis without myelopathy or radiculopathy, thoracic region | CPT/HCPCS: 36415; 80076; 82565; 85025; 85651; 86140; 99214 ==

== ENCOUNTER 2024-08-20 08:06 | Outpatient (CLI) | payer MEDICARE, SELFPAY ==
--- NOTE | 2024-08-20 08:11 | MM_ITS ---
WS: [id number] BILATERAL SCREENING DIGITAL TOMOSYNTHESIS MAMMOGRAM WITH CAD HISTORY: SCREENING COMPARISON: 07/25/2023, 05/30/2022 and 09/06/2020 Bilateral CC and MLO views with tomosynthesis and synthetic mammography submitted. Computer aided det ection analyzed. Breast composition: There are scattered areas of fibroglandular density. No suspicious masses, microc alcifications or architectural distortion. MM/MM scr BI tomosynthesis [id number] IMPRESSION: BI-RADS: 2 - Benign. FOLLOW UP: 1 Year Follow-up
== END 2024-08-20 08:07 | disposition home or self-care (01) ==
LOC: RAD 08:07
PROVIDERS: PCP Family Medicine; Visit Provider Family Medicine
DX: Z12.31 Encounter for screening mammogram for malignant neoplasm of breast (principal); R92.323 Mammographic fibroglandular density, bilateral breasts
CPT/HCPCS: 77063; 77067

== ENCOUNTER → 2024-12-31 13:13 | Outpatient (BNVA) | payer MEDICARE, OTHER, SELFPAY | PROVIDERS: PCP Family Medicine; Visit Provider Internal Medicine Rheumatology | DX: R76.8 Other specified abnormal immunological findings in serum (principal); Z79.899 Other long term (current) drug therapy; Z15.89 Genetic susceptibility to other disease; M47.812 Spondylosis without myelopathy or radiculopathy, cervical region; M47.816 Spondylosis without myelopathy or radiculopathy, lumbar region; M47.814 Spondylosis without myelopathy or radiculopathy, thoracic region | CPT/HCPCS: 36415; 80076; 82565; 85025; 85651; 86140; 99214 ==

== ENCOUNTER → 2025-02-12 07:59 | Outpatient (BNVA) | payer MEDICARE, OTHER, SELFPAY | PROVIDERS: PCP Family Medicine; Visit Provider Nurse Practitioner Family | DX: L82.1 Other seborrheic keratosis (principal); D36.14 Benign neoplasm of peripheral nerves and autonomic nervous system of thorax; D23.71 Other benign neoplasm of skin of right lower limb, including hip; L57.8 Other skin changes due to chronic exposure to nonionizing radiation; L81.4 Other melanin hyperpigmentation | CPT/HCPCS: 99213 ==

== ENCOUNTER → 2025-03-25 12:50 | Outpatient (BNVA) | payer MEDICARE, OTHER, SELFPAY | PROVIDERS: PCP Family Medicine; Referring Provider Family Medicine; Visit Provider Family Medicine | DX: I48.91 Unspecified atrial fibrillation (principal); I49.3 Ventricular premature depolarization; I49.1 Atrial premature depolarization; I47.10 Supraventricular tachycardia, unspecified | CPT/HCPCS: 93242 ==

== ENCOUNTER → 2025-05-25 13:08 | Outpatient (BNVA) | payer MEDICARE, OTHER, SELFPAY | PROVIDERS: PCP Family Medicine; Visit Provider Internal Medicine Rheumatology | DX: R76.8 Other specified abnormal immunological findings in serum (principal); M47.812 Spondylosis without myelopathy or radiculopathy, cervical region; M47.816 Spondylosis without myelopathy or radiculopathy, lumbar region; M47.814 Spondylosis without myelopathy or radiculopathy, thoracic region; Z15.89 Genetic susceptibility to other disease; Z79.899 Other long term (current) drug therapy | CPT/HCPCS: 36415; 80076; 82565; 85025; 85651; 86140; 99214 ==

== ENCOUNTER 2025-06-21 09:46 | Emergency (ER) | payer MEDICARE, OTHER, SELFPAY ==
--- NOTE | 2025-06-21 09:47 | XR_ITS ---
WS: [email or web address] Exam: XR chest 1V portable [id number] Date/Time of Exam: 06/21/2025 9:47 AM Reason For Exam: sob Comparison 02/23/2023. Lungs are clear and fully inflated. Normal cardiomediastinal silhouette. Bony structures are intact. No pleural effusion. XR/XR chest 1V portable [id number] IMPRESSION: 1. No acute cardiopulmonary finding.
--- NOTE | 2025-06-21 09:47 | ECG_ITS ---
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
[2025-06-21 09:50] VITALS: BP 161/104; PULSE 71; RESP 16; TEMP 36.8; O2SAT 97; BMI 36.1
[2025-06-21 10:06] LABS: Hematocrit 46.8 % (36-47); Hemoglobin 15.00 g/dL (11.27-16.99); Mean Corpuscular HGB Conc 32.1 g/dL (30-55); Mean Corpuscular Hemoglobin 30.5 pg (27-33); Mean Corpuscular Volume 95.3 fl (85-98); Nucleated Red Blood Cells % 0 %; Platelet Count 208 10^3/cmm (157-399); Red Blood Count 4.91 10^6/uL (3.85-5.65); White Blood Count 6.91 10^3/uL (3.29-11.43)
--- NOTE | 2025-06-21 10:11 | W.ED.ARRPALP ---
HPI - Arrhythmia/Palpitations General: Chief Complaint: Arrhythmia/Palpitations Stated Complaint: SOB, a-fib--sent by dr Time Seen by Provider: 06/21/25 09:51 Source: patient Mode of arrival: ambulatory Limitations: no limitations History of Present Illness: 74-year-old female has a history of A-fib states that throughout the weekend she felt like she is having some palpitations and states her Apple watch and said that she had been in A-fib. Patient's heart rate here is in normal sinus rhythm in the 60s. She states she has had some mild dyspnea she denies any chest pain she denies any vomiting or diarrhea. Related Data Home Medications ?Medication ?Instructions ?Recorded ?Confirmed metoprolol succinate 100 mg 100 mg PO DAILY 09/17/22 05/25/25 tablet,extended release 24 hr atorvastatin 20 mg tablet 20 mg PO DAILY 03/06/23 05/25/25 levothyroxine 125 mcg tablet 125 mcg PO DAILY 03/06/23 05/25/25 meloxicam 7.5 mg tablet 7.5 mg PO DAILY 04/09/23 05/25/25 loratadine [Claritin] PO allergies 12/31/24 05/25/25 pantoprazole PO 12/31/24 05/25/25 Previous Rx's ?Medication ?Instructions ?Recorded tizanidine 4 mg tablet 4 mg PO TID PRN muscle spasticity 01/05/25 #30 tabs folic acid 1 mg tablet 1 mg PO DAILY #90 tabs 05/25/25 methotrexate sodium 2.5 mg tablet See Rx Instructions PO .week 05/25/25 Rheumatoid Arthritis #50 tabs prednisone 20 mg tablet See Rx Instructions PO .COMPLEX 05/25/25 PRN joint pain flare #30 tabs Allergies Allergy/AdvReac Type Severity Reaction Status Date / Time Sulbactam and Other Allergy Mild ADR-Abdominal Verified 05/25/25 13:40 Inhibitor Analo Pain (Penicillanic Sulfone BL Beta-Lactam) Review of Systems Resp: Reports: dyspnea PFSH ED PFSH: Medical History 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 Blood test positive for human leukocyte antigen (HLA) B27 No pertinent past medical history neghx: htn,dm,thyroid,dvt/pe PCP: Hypothyroidism Arthralgia Positive antinuclear antibody Hypertension Surgical History No pertinent past surgical history H/O knee surgery right Family History Family/Other Colon cancer paternal uncle Sister Diabetes Hypertension Mother Heart disease Hypertension Grandmother Stroke maternal Denies family history of Ovarian cancer Hyperlipidemia Breast cancer Uterine cancer Thyroid disease Social History Smoking and tobacco/nicotine status: never used tobacco/nicotine Alcohol intake: never Physical Exam Const: COMMON NORMALS: no acute distress, patient oriented x3 and healthy appearing HENMT: COMMON NORMALS: normocephalic and atraumatic HEAD & SCALP: normocephalic and atraumatic Neck/C-Spine: COMMON NORMALS: full ROM and supple Chest: COMMONS NORMALS: normal inspection of the chest and normal palpation of entire chest wall Resp: COMMON NORMALS: normal respiratory effort, No retractions, No use of accessory muscles and clear to auscultation bilaterally AUSCULTATION: clear to auscultation bilaterally Cardio: COMMON NORMALS: regular rate, regular rhythm and No murmurs present (Cardio) RATE: regular rate RHYTHM: regular rhythm GI: COMMON NORMALS: Normal to inspection, nondistended, normoactive bowel sounds present, Soft to palpation, non-tender and no masses PALPATION: Yes Soft to palpation Extremity: COMMON NORMALS: normal to inspection and full ROM Neuro: COMMON NORMALS: patient oriented x3, moves all extremities and no focal motor deficits Psych: COMMON NORMALS: mental status grossly normal, Normal thought process present and cooperative THOUGHT PROCESS: Normal thought process present Skin: COMMON NORMALS: no rashes or lesions noted and no wounds GENERAL SKIN EXAM: no rashes or lesions noted Course Vital Signs: Vital signs: Vital Signs Temperature 98.3 F 06/21/25 09:50 Pulse Rate 72 06/21/25 11:07 Respiratory Rate 16 06/21/25 09:50 Blood Pressure 111/93 06/21/25 11:07 Pulse Oximetry 98 06/21/25 11:07 Oxygen Delivery Me thod Room Air 06/21/25 09:50 MDM - Arrhythmia/Palpitations Medical Decision Making Patient presents with concern of possible A-fib. Her heart rate here has been in the 60s normal sinus rhythm. EKG here showed normal sinus rhythm heart rate [address] elevation QRS 86 QTc 383. Patient's white count electrolytes here are normal chest x-ray I interpreted and showed no acute abnormalities. Patient has been wearing a heart monitor and has follow-up with cardiology early next month. I feel she is stable for discharge at this time she feels much improved here I did go over EKG and labs and imaging with her she understands agrees plan Medical Records I reviewed the patient's medical records. Lab Data I reviewed the patient's lab results. 06/21/25 09:58 06/21/25 09:58 Radiology Impressions Chest X-Ray 06/21/25 09:47 IMPRESSION: 1. No acute cardiopulmonary finding. Laboratory Results WBC 6.91 10^3/uL (3.29-11.43) 06/21/25 09:58 RBC 4.91 10^6/uL (3.85-5.65) 06/21/25 09:58 Hgb 15.00 g/dL (11.27-16.99) 06/21/25 09:58 Hct 46.8 % (36-47) 06/21/25 09:58 MCV 95.3 fl (85-98) 06/21/25 09:58 MCH 30.5 pg (27-33) 06/21/25 09:58 MCHC 32.1 g/dL (30-55) 06/21/25 09:58 RDW 13.2 % (12.1-15.1) 06/21/25 09:58 Plt Count 208 10^3/cmm (157-399) 06/21/25 09:58 MPV 10.2 fL (7.4-10.4) 06/21/25 09:58 Neut % (Auto) 51.9 % 06/21/25 09:58 Lymph % (Auto) 35.2 % 06/21/25 09:58 [place] % (Auto) 9.4 % 06/21/25 09:58 Eos % (Auto) 2.3 % 06/21/25 09:58 Baso % (Auto) 0.9 % 06/21/25 09:58 Neut # (Auto) 3.59 10^3/uL (1.8-7.7) 06/21/25 09:58 Lymph # (Auto) 2.4 10^3/uL (0.8-4.8) 06/21/25 09:58 [place] # (Auto) 0.7 10^3/uL (0.2-0.9) 06/21/25 09:58 Eos # (Auto) 0.2 10^3/uL (0.0-0.8) 06/21/25 09:58 Baso # (Auto) 0.1 10^3/uL (0.0-0.1) 06/21/25 09:58 Nucleated RBC % (auto) 0 % 06/21/25 09:58 Nucleated RBCs # 0.0 /100WBC 06/21/25 09:58 PT 13.00 SECONDS (12.1-14.9) 06/21/25 09:58 INR 0.91 (0.8-1.2) 06/21/25 09:58 Sodium 140 mmol/L (136-145) 06/21/25 09:58 Potassium 4.6 mmol/L (3.5-5.1) 06/21/25 09:58 Chloride 104 mmol/L (98-107) 06/21/25 09:58 Carbon Dioxide 23 mmol/L (22-29) 06/21/25 09:58 Anion Gap 17.6 (5-19) 06/21/25 09:58 BUN 16 mg/dL (8-23) 06/21/25 09:58 Creatinine 0.8 mg/dL (0.5-0.9) 06/21/25 09:58 GFR Calculation Not Reportable 06/21/25 09:58 Glucose 97 mg/dL (65-115) 06/21/25 09:58 Calculated Osmolality 291 mOsm/kg (285-295) 06/21/25 09:58 Calcium 9.3 mg/dL (8.5-10.5) 06/21/25 09:58 Total Bilirubin 0.3 mg/dL (0.15-1.2) 06/21/25 09:58 AST 21 U/L (0-32) 06/21/25 09:58 ALT 25 U/L (0-33) 06/21/25 09:58 Alkaline Phosphatase 115 U/L (35-105) H 06/21/25 09:58 NT-Pro-B Natriuret Pep 4392 pg/mL (0-125) H 06/21/25 09:58 Total Protein 7.0 g/dL (6.6-8.7) 06/21/25 09:58 Albumin 4.2 g/dL (3.5-5.2) 06/21/25 09:58 Globulin 2.8 g/dL (1.3-4.6) 06/21/25 09:58 All radiology interpretation(s) finalized by discharge EKG Data EKG 1: I personally reviewed and interpreted this EKG as follows: EKG interpretation date: 06/21/25 EKG interpretation time: 09:53 Interpretation: nsr hr [address] elevation qrs 86 qtc 383 Other EKG comments: Chest X-Ray 06/21/25 09:47 IMPRESSION: 1. No acute cardiopulmonary finding. Discharge Plan Discharge Patient Disposition: Home Clinical Impression: Palpitations Condition: Stable Prescriptions: No Action metoprolol succinate 100 mg tablet extended release 24 hr 100 mg PO DAILY levothyroxine 125 mcg tablet 125 mcg PO DAILY atorvastatin 20 mg tablet 20 mg PO DAILY meloxicam 7.5 mg tablet 7.5 mg PO DAILY folic acid 1 mg tablet 1 mg PO DAILY Qty: 90 1RF prednisone 20 mg tablet See Rx Instructions PO .COMPLEX PRN (Reason: joint pain flare) Qty: 30 1RF Rx Instructions: take 1 or 2 tab daily for up to 7 days as needed for arthritis flare PO PRN; methotrexate sodium 2.5 mg tablet See Rx Instructions PO .week Qty: 50 4RF Rx Instructions: Split dose.. take 10 tabs on the same day once a week, take 5 tabs in the AM and 5 tabs in the PM loratadine [Claritin] PO pantoprazole PO tizanidine 4 mg tablet 4 mg PO TID PRN (Reason: muscle spasticity) Qty: 30 0RF Discharge Orders: Discharge ED (Routine); Ordered 06/21/25 Ordered By: Ysabel Donohue Referrals: Zeina Toledo MD [Primary Care Provider, Family Practice] - 4-7 days Discharge Diet: Advance as tolerated Discharge Activity: Resume usual activity Patient Instructions: Heart Palpitations (ED) Print Language: Luxembourger Coding Level of Care Code ED Rip Sawyer for Chg Fwd
[2025-06-21 10:19] LABS: INR 0.91 (0.8-1.2); Prothrombin Time 13.00 SECONDS (12.1-14.9)
--- OUTSIDE RECORDS SUMMARY | 2025-06-21 10:24 | XMS_ITS | Continuity of Care Document ---
Author Organization VALERIA - Arnel Nails [facility], [place], [facility] ([facility]) Address [address] [place] [address] Care Team Providers Care Precision Agronomist Name Role Phone ZEINA TOLEDO Primary Care Provider [facility] RHEUMATOLOGY OTHER [facility] OTHER [phone] Assessment No assessment recorded. Plan of Treatment Reminders Order Date Submit Date Provider Last Modified By Organization Details Last Modified Time Details Appointments TOLEDO OV 025 09:15AM Zeina Toledo MD Not available Not available Not available HAMZAH OV 026 09:00AM Zeina Toledo MD Not available Not available Not available Lab None record ed. Referral None record ed. Procedures None record ed. Surgeries None record ed. Imaging None record ed. Medication Orders None record ed. Patient TargetsNo targets recorded. Patient Instructions Encounter Date Encounter Id Patient Instructions Last Modified By Organization Details Last Modified Time 06/21/2025 [id number] - Go to the emergency room for immediate assessment of your symptoms today. - Follow any recommendations given at the emergency room, including potential blood thinner use. - Avoid strenuous activities until cleared by your healthcare provider. - Monitor for worsening symptoms, and seek immediate care if conditions deteriorate. [email or web address] Not available 06/21/2025 11:07:10 Reason for Referral None Reported. 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 4 08:41:30 Hyperlipid emia 14413821 Active 2023 [facility] 4 09:38:00 Obesity 186071143 Active 2023 [facility] 4 09:38:24 Problem Notes None recorded. Procedures Surgical History Date Name Laterality Status Provider Name and Address Organization Details Recorded Time 08/20/20 24 mammography completed [facility] 08/24/2024 09:05:06 09/09/19 20 echocardiography completed [facility] 06/06/2023 08:42:08 08/26/19 16 Date of Last Pap Smear completed [facility] 06/06/2023 08:40:38 mammography completed [facility] 06/06/2023 08:39:30 Colonoscopy completed [facility] 06/06/2023 08:39:59 bone density scan completed [facility] 06/06/2023 08:40:17 Imaging Results None recorded. Procedure Notes None recorded. Medical Equipment None Reported. Allergies Allergen ID Allergen Name Allergen Category Reaction Reaction Severity Criticality Documentation Date Start Date Code Code System Note Provider Name and Address Organization Details Recorded Time 1209 Product containin g penicilli n (product) medicatio n nausea Not available Not available 12/03/2022 56906 8001 SNOMED AB [facility] 3 10:11:09 47856 sulfasala zine medicatio n itching Not available Not available 12/09/2023 9524 RxNorm AB [facility] 4 09:49:59 Medications Name Sig Start Date Stop Date Status Note LastModified by Organization Details LastModified Time nifedipin e ER 30 mg tablet,ex tended release 24 hr TAKE 1 TABLET BY MOUTH EVERY DAY 10/07 completed Not Available Not Available Not Available atorvasta tin 20 mg tablet TAKE 1 TABLET BY MOUTH EVERYDAY AT BEDTIME active Not Available Not Available No t Available sulfasala zine 500 mg tablet TAKE 1 TABLET BY MOUTH EVERY DAY WITH FOOD (MEAL/SN ACK) 12/08 completed Not Available Not Available Not Available lisinopri l 20 mg-hydroc hlorothia zide 12.5 mg tablet TAKE 1 TABLET BY MOUTH EVERY DAY 06/06 completed Not Available Not Available Not Available azithromy ada 250 mg tablet TAKE 2 TABLETS (500 MG) BY ORAL ROUTE ONCE DAILY FOR 1 DAY THEN 1 TABLET (250 MG) BY ORAL ROUTE ONCE DAILY FOR 4 DAYS 12/08 completed Not Available Not Available Not Available tizanidin e 4 mg tablet TAKE 1 TABLET ORALLY THREE TIMES DAILY NEEDED FOR MUSCLE SPASTICI TY active Not Available Not Available No t Available Claritin 10 mg tablet Take 1 tablet every day by oral route. 06/06 completed Not Available Not Available Not Available meloxicam 15 mg tablet Take 1 tablet every day by oral route for 30 days. 10/20 completed Not Available Not Available Not Available sucralfat e 1 gram tablet TAKE 1 TABLET BY MOUTH FOUR TIMES A DAY FOR 14 DAYS 06/21 completed Not Available Not Available Not Available famotidin e 40 mg tablet TAKE 1 TABLET BY MOUTH TWICE A DAY 06/21 completed Not Available Not Available Not Available prednison e 20 mg tablet TAKE 1 OR 2 TABLETS BY MOUTH DAILY FOR UP TO 7 DAYS NEEDED FOR ARTHRITI S FLARE active Not Available Not Available No t Available metoprolo l succinate ER 100 mg tablet,ex tended release 24 hr TAKE 1 TABLET BY MOUTH EVERY DAY active Not Available Not Available No t Available meloxicam 7.5 mg tablet TAKE 1 TABLET BY MOUTH EVERY DAY active Not Available Not Available No t Available methotrex ate sodium 2.5 mg tablet PLEASE SEE ATTACHED FOR DETAILED DIRECTIO NS active 4 tab Q Saturday morning and night. Not Available Not Available Not Available benzonata te 100 mg capsule Take 1 capsule 3 times a day by oral route as needed. 10/08 completed Not Available Not Available Not Available pantopraz ole 40 mg tablet,de layed release TAKE 1 TABLET BY MOUTH TWICE A DAY active Not Available Not Available No t Available levothyro xine 125 mcg tablet Take by oral route. active Not Available Not Available No t Available triamcino lone acetonide 0.1 % topical ointment APPLY TO AFFECTED AREA TWICE A DAY, NOT FOR FACE OR GROIN. 06/06 completed Not Available Not Available Not Available levothyro xine 150 mcg tablet TAKE 1 TABLET BY MOUTH EVERY DAY 06/21 completed Not Available Not Available Not Available lidocaine HCl 2 % mucosal solution SWISH AND SPIT 15 ML BY MOUTH 4 TIMES DAILY NEEDED FOR SORE MOUTH 12/08 completed Not Available Not Available Not Available omeprazol e 20 mg capsule,d elayed release Take 1 capsule every day by oral route. 06/06 completed Not Available Not Available Not Available diclofena c sodium 75 mg tablet,de layed release TAKE 1 TABLET BY MOUTH TWICE A DAY NEEDED FOR KNEE PAIN 06/06 completed Not Available Not Available Not Available folic acid 1 mg tablet TAKE 1 TABLET BY MOUTH EVERY DAY active Not Available Not Available No t Available furosemid e 20 mg tablet TAKE 1 TABLET BY MOUTH EVERY DAY 06/06 completed Not Available Not Available Not Available dicyclomi ne 10 mg capsule TAKE 1 CAPSULE BY MOUTH FOUR TIMES A DAY NEEDED FOR GALL BLADDER DISCOMPF ORT 12/08 completed Not Available Not Available Not Available cyclobenz aprine 5 mg tablet TAKE 1 TABLET BY MOUTH THREE TIMES A DAY NEEDED FOR MUSCLE SPASM 12/08 completed Not Available Not Available Not Available atorvasta tin at bedtime 06/06 completed LB/robert; [id number]; Recorded 10/16/19 23 8:41AM by Ab Bryant LPN (Authori romelia through Zeina Toledo MD), Refill Request; Refill Quantity : 0; Not Available Not Available Not Available metoprolo l succinate daily 06/06 completed robert/OSMAN; [id number]; Recorded 08/02/20 22 10:01AM by Ab Bryant LPN (Authori romelia through Zeina Toledo MD), Annotati on/Adden dum; Refill Quantity : 90; Tablet; Not Available Not Available Not Available dicyclomi ne 10 mg tablet Take 10 mg 4 times a day by oral route. active Not Available Not Available No t Available Paxlovid 300 mg (150 mg x 2)-100 mg tablets in a dose pack TAKE 3 TABLETS TWICE A DAY DIRECTED ON PACKAGE FOR 5 DAYS. 08/12 completed Not Available Not Available Not Available Vitals Date Recorded Body height Body mass index (BMI) Body weight Body temperature Oxygen saturation Oxygen saturation in Arterial blood by Pulse oximetry Heart rate Systolic And Diastolic Provider Name and Address Organization Details Last Updated DateTime 5 167.64 cm 36.6 kg/m2 024923. 47 g 96.9 [degF] 99 % 99 % 79 /min 148/100 mm[Hg] AB BRYANT [facility] 5 10:13:41 Social History None recorded. Functional Status Question Answer Note LastModified by Organizat ion Details LastModified Time Do you use any illicit or recreational drugs? No [email or web address] Information not available 06/06/2023 Do you or have you ever used any other forms of tobacco or nicotine? No [email or web address] Information not available 12/03/2022 What is your level of alcohol consumption? None Information not available 06/06/2023 Mental Status None recorded. Family History Relationship Description Onset Age of this Age Resolved Age Notes LastModified by Organization Details LastModified Time Mother Hypertensive disorder Not available 2022 10:04:17 Mother Atrial fibrillation Not available 07/2023 10:04:34 Mother Myocardial infarction [email or web address] Not available 06/06 10:05:06 Sister Atrial fibrillation [email or web address] Not available 07/2023 10:04:34 Sister Malignant neoplasm of kidney [email or web address] Not available 2022 10:05:18 Sister Type 1 diabetes mellitus [email or web address] Not available 2022 10:05:34 Father Pulmonary embolism [email or web address] Not available 2022 10:04:56 Medical History Condition Response Coronary Artery Disease N Other N Gout N Kidney Stones N Blood Diseases N Hyperthyroidism N Breast Cancer N Blood Transfusion N Hypothyroidism Y Lung Disease N COPD N Depression N Defects or Inherited Disease N Developmental or Behavioral Disorders N Breast Problem N Difficulty Swallowing N Anesthesia Complications N Meniere's disease N Anxiety Disorder N Muscle, Joint, or Bone Problems N Vision or Eye Problems N Arthritis Y Infertility N Polyps N Cancer N Stroke N Varicosities N Endometriosis N Bladder or Kidney Problems N High Cholesterol Y Liver Disease N Fibromyalgia N Headaches N Kidney Disease N Allergies/Hayfever N Heart Problems N Ear or Hearing Problems N Hospitalizations N Thyroid Problems N GI Problems N ADD/ADHD N Skin Problems N Eating Disorder N Anemia N Constipation N Mental Illness N Ovarian Cancer N Diabetes N Bedwetting N Seizures/Epilepsy N Tuberculosis N Eczema N Diverticulitis N Abuse/Domestic Violence N Asthma N Reflux/GERD N Hepatitis N Heart Disease N Pulmonary Embolism N Chronic Ear Infections N Pre-Eclampsia N Hypertension Y Chicken Pox N Autism Spectrum Disorder (ASD) N Osteoporosis N Thrombophilias N Gynecological History Statement/Question Response Abnormal Pap N Date of Last Pap Smear 08/26/2015 Obstetrics History GPAL:G 0 P 0 0 0 0 Immunizations Vaccine Type Date Status Note Provider Nam e and Address Organization Details Recorded Time Influenza, split virus, trivalent, preservative 6 completed LISBETH [facility] 10/07/2023 08:16:03 Influenza, split virus, trivalent, preservative 7 completed LISBETH [facility] 10/07/2023 08:16:03 Influenza, split virus, trivalent, preservative 8 completed LISBETH [facility] 10/07/2023 08:16:03 Influenza, adjuvanted, quadrivalent, PF 3 completed LISBETH [facility] 10/07/2023 08:16:03 Influenza, high-dose, trivalent, PF 7 completed Not Available [facility] 06/21/2025 10:08:02 Influenza, adjuvanted, trivalent, PF 8 completed Not Available [facility] 06/21/2025 10:08:02 Influenza, high-dose, trivalent, PF 9 completed Not Available [facility] 06/21/2025 10:08:02 COVID-19, mRNA, LNP-S, PF, 100 mcg/0.5mL dose or 50 mcg/0.25mL dose 1 completed Not Available [facility] 06/21/2025 10:08:02 COVID-19, mRNA, LNP-S, PF, 100 mcg/0.5mL dose or 50 mcg/0.25mL dose 1 completed Not Available [facility] 06/21/2025 10:08:02 pneumococcal polysaccharide PPV23 1 completed Not Available [facility] 06/21/2025 10:08:02 COVID-19, mRNA, LNP-S, PF, 100 mcg/0.5mL dose or 50 mcg/0.25mL dose 1 completed Not Available [facility] 06/21/2025 10:08:02 Influenza, adjuvanted, quadrivalent, PF 2 completed Not Available [facility] 06/21/2025 10:08:02 COVID-19, mRNA, LNP-S, bivalent, PF, 50 mcg/0.5 mL or 25mcg/0.25 mL dose 2 completed Not Available [facility] 06/21/2025 10:08:02 COVID-19, mRNA, LNP-S, PF, 50 mcg/0.5 mL 3 completed Not Available [facility] 06/21/2025 10:08:02 Influenza, high-dose, trivalent, PF 4 completed Not Available [facility] 06/21/2025 10:08:02 COVID-19, mRNA, LNP-S, PF, 50 mcg/0.5 mL 4 completed Not Available [facility] 06/21/2025 10:08:02 Influenza, high-dose, trivalent, PF 5 completed Not Available [facility] 06/21/2025 10:08:02 COVID-19, mRNA, LNP-S, PF, 50 mcg/0.5 mL 5 completed Not Available [facility] 06/21/2025 10:08:02 Past Encounters Encounter ID Performer Location Encounter Start Date Encounter Closed Date Diagnosis/Indication Diagnosis SNOMED-CT Code Diagnosis ICD10 Code Diagnosis IMO Codes Diagnosis Note [id number] Zeina Toledo MD [facility] ([facility]) [address] [place] [phone] 06/21/2025 10:06:16 06/21/2025 11:18:09 Atrial fibrillation 27757387 I48.91 [id number] Patient's heart rate does sound irregular today. I am concerned about her symptoms of shortness of breath and feeling panicky in her central chest as she points to her mid sternum. Patient would best be served by workup in the ER where she can be on a heart monitor. She reluctantl y agrees to go to the ER. Health Concerns Section Related Observation LastModified by Organization Detai ls LastModified Time None Recorded Concern Status LastModified by Organization Details LastModified Time None Recorded Payers Encounter Date Sequence Insurance Name Policy Number Policy Miller Covered Member ID Miller Member ID Guarantor Name 06/21/2025 2 [place] [employer] - PLAN F (MEDICARE SUPPLEMENT) [id number] Sybil Perry [id number] Sybil Perry 06/21/2025 1 [place] [employer] Sybil Perry [id number] Sybil Perry Notes Date Note Type Note Provider Name and Address Organization Details Recorded Time 5 text/html DyspneaReported by PatientHPIFor quality, patient reportsinability to take a deep breath. For aggravating factors, patient reportsactivity. For associated symptoms, patient reportspalpitations,fatigu e, andlightheadednessbut reportsno chest pain,no fever, andno wheezing. For alleviating factors, patient reportsnothing gives relief.ROS as noted in the HPI The patient is a 74-year-old female presenting with symptoms attributable to atrial fibrillation. She noted symptomatic occurrences throughout Saturday and Saturday, characterized by intermittent sleeping and a ugarte appearance observed on Saturday. By Saturday, her condition showed some improvement, although she continues experiencing a panicky feeling in her chest and shortness of breath with exertion. A heart monitor recently conducted did not show atrial fibrillation, although her history includes a past occurrence of ventricular tachycardia on heart monitor. - Heart monitor result: No atrial fibrillation shown, two occurrences of ventricular tachycardia were mentioned. Zeina Toledo MD [address] [place] [address], [phone], [facility] 06/21/2025 11:18:08 OBGyn Episode No OBEpisode recorded.
--- OUTSIDE RECORDS SUMMARY | 2025-06-21 10:25 | XMS_ITS | Data Portability ---
Author Organization [facility] Arnel Nails [facility], [place], [employer] [facility] Address [address] [address] Care Team Providers Care Pm Technician Name Role Phone ZEINA TOLEDO Primary Care Provider [facility] RHEUMATOLOGY OTHER [facility] OTHER [phone] Assessment No assessment recorded. Plan of Treatment Reminders Order Date Submit Date Provider Last Modified By Organization Details Last Modified Time Details Appointments HAMZAH OV 2024 09:15A James Toledo MD Not available Not available Not available HAMZAH OV 2025 09:00A James Toledo MD Not available Not available Not available Lab TSH, serum or plasma 2024 025 [email or web address] 0 [facility], [address], [facility], [place], [address], 03/02/2025 08:19:49 CMP, serum or plasma 2024 025 [facility], [address], [address], [place], [address], 02/11/2025 09:39:08 thyrotrop in, QN, serum or plasma 2024 025 [facility], [address], [facility], [place], [address], 02/11/2025 10:47:08 lipid panel, blood 2024 025 TONYANYA [facility], [address] [facility] [address], [address], [place], [address], 02/11/2025 09:39:11 Referral general surgeon referral 2024 025 [email or web address] Juan Castro MD, [address], [address], [place], [address], 10/08/2024 18:09:04 Procedures None recorded. Surgeries None recorded. Imaging holter monitor - 7 days 2024 025 [email or web address] [facility], [address] [facility], [place], [address], 03/16/2025 10:56:54 Medication Orders None recorded. Patient TargetsNo targets recorded. Patient Instructions Encounter Date Encounter Id Patient Instructions Last Modified By Organization Details Last Modified Time 06/21/2025 [id number] - Go to the emergency room for immediate assessment of your symptoms today. - Follow any recommendations given at the emergency room, including potential blood thinner use. - Avoid strenuous activities until cleared by your healthcare provider. - Monitor for worsening symptoms, and seek immediate care if conditions deteriorate. [email or web address] Not available 06/21/2025 11:07:10 Reason for Referral General Surgeon Referral for Abdominal colic Referring Physician: Zeina Toledo, Family Medicine, Encounter Date: 10/05/2024 Results Created Date Observation Date Name Description Value Unit Range Abnormal Flag Note LastModifiedBy Organization Detail LastModifiedTime 09/10/1909/10/2024 CMP (FEMA LE) glucose 99.0 mg/dL 60.0-9 9.0 Not Available [facility] [address] [facility] [address], [place], [address], 09/10/2024 13:07:28 09/10/19 25 09/10/2024 CMP (FEMA LE) BUN (blood urea nitrogen) 17.0 mg/dL 10.0-2 6.0 Not Available [facility] [address], [place], [address], 09/10/2024 13:07:28 09/10/19 25 09/10/2024 CMP (FEMA LE) creatinine (serum) 1.0 mg/dL 0.4-1. 5 Not Available [facility] [address] [facility], [place], [address], 09/10/2024 13:07:28 09/10/19 25 09/10/2024 CMP (FEMA LE) BUN/creatini ne ratio 17.00 ratio Not Available [facility] [address] [facility] [address] [facility], [place], [address], 09/10/2024 13:07:28 09/10/19 25 09/10/2024 CMP (FEMA LE) eGFR calculated 57.9 Not Available [facility] [address] [facility], [place], [address], 09/10/2024 13:07:28 09/10/19 25 09/10/2024 CMP (FEMA LE) total protein 7.5 g/dL 6.0-8. 5 Not Available [facility] [address] [facility] 1, [place], [address], 09/10/2024 13:07:28 09/10/19 25 09/10/2024 CMP (FEMA LE) total bilirubin 0.6 mg/dL 0.2-1. 3 Not Available [facility] [address] [facility], [place], [address], 09/10/2024 13:07:28 09/10/19 25 09/10/2024 CMP (FEMA LE) albumin 4.4 g/dL 3.5-5. 5 Not Available [facility] [address] [facility], [place], [address], 09/10/2024 13:07:28 09/10/19 25 09/10/2024 CMP (FEMA LE) globulin 3.1 calc Not Available [facility] [address] [facility], [place], [address], 09/10/2024 13:07:28 09/10/19 25 09/10/2024 CMP (FEMA LE) AST (SGOT) 43.0 U/L 0.0-46 .0 Not Available [facility] [address] [facility] [address], [place], [address], 09/10/2024 13:07:28 09/10/19 25 09/10/2024 CMP (FEMA LE) altv (SGPT) 44.0 U/L 13.0-6 9.0 normal Not Available [facility] [address] [facility] [address], [place], [address], 09/10/2024 13:07:28 09/10/19 25 09/10/2024 CMP (FEMA LE) A/G ratio 1.4 ratio Not Available [facility] [address] [facility] [address], [place], [address], 09/10/2024 13:07:28 09/10/19 25 09/10/2024 CMP (FEMA LE) ALP phos 94.0 U/L 30.0-1 40.0 normal Not Available [facility] [address] [facility] [address], [place], [address], 09/10/2024 13:07:28 09/10/19 25 09/10/2024 CMP (FEMA LE) calcium 9.3 mg/dL 8.4-10 .5 Not Available [facility] [address] [facility] [address], [place], [address], 09/10/2024 13:07:28 09/10/19 25 09/10/2024 CMP (FEMA LE) sodium 137.0 mmol/ L 136.0- 145.0 Not Available [facility] [address] [facility], [place], [address], 09/10/2024 13:07:28 09/10/19 25 09/10/2024 CMP (FEMA LE) potassium 4.3 mmol/ L 3.5-5. 1 Not Available [facility] [address] [facility] [address], [place], [address], 09/10/2024 13:07:28 09/10/19 25 09/10/2024 CMP (FEMA LE) chloride 105.0 mmol/ L 98.0-1 10.0 normal Not Available [facility] [address] [facility], [place], [address], 09/10/2024 13:07:28 09/10/19 25 09/10/2024 CMP (FEMA LE) C02 29.0 mmol/ L 22.0-3 1.0 Not Available [facility] [address] [facility] 1, [place], [address], 09/10/2024 13:07:28 09/10/19 25 09/10/2024 CMP (FEMA LE) anion gap 3.0 calc Not Available [facility] [address] [facility] 1, [place], [address], 09/10/2024 13:07:28 09/10/19 25 09/10/2024 CMP (FEMA LE) osmolality 284.6 calc Not Available [facility] [address] [facility] 1, [place], [address], 09/10/2024 13:07:28 02/12/20 25 02/11/2025 CMP (FEMA LE) glucose 90.0 mg/dL 60.0-9 9.0 Not Available [facility] [address] [facility] 1, [place], [address], 02/11/2025 09:39:08 02/12/20 25 02/11/2025 CMP (FEMA LE) BUN (blood urea nitrogen) 12.0 mg/dL 10.0-2 6.0 Not Available [facility] [address] [facility], [place], [address], 02/11/2025 09:39:08 02/12/20 25 02/11/2025 CMP (FEMA LE) creatinine (serum) 0.9 mg/dL 0.4-1. 5 Not Available [facility] [address] [facility] 1, [place], [address], 02/11/2025 09:39:08 02/12/20 25 02/11/2025 CMP (FEMA LE) BUN/creatini ne ratio 13.33 ratio Not Available [facility] [address] [facility] 1, [place], [address], 02/11/2025 09:39:08 02/12/20 25 02/11/2025 CMP (FEMA LE) eGFR calculated 65.2 Not Available [facility] [address] [facility], [place], [address], 02/11/2025 09:39:08 02/12/20 25 02/11/2025 CMP (FEMA LE) total protein 6.8 g/dL 6.0-8. 5 Not Available [facility] [address] [facility] 1, [place], [address], 02/11/2025 09:39:08 02/12/20 25 02/11/2025 CMP (FEMA LE) total bilirubin 0.7 mg/dL 0.2-1. 3 Not Available [facility] [address] [facility], [place], [address], 02/11/2025 09:39:08 02/12/20 25 02/11/2025 CMP (FEMA LE) albumin 4.0 g/dL 3.5-5. 5 Not Available [facility] [address] [facility] [facility], [place], [address], 02/11/2025 09:39:08 02/12/20 25 02/11/2025 CMP (FEMA LE) globulin 2.8 calc Not Available [facility] [address] [facility], [place], [address], 02/11/2025 09:39:08 02/12/20 25 02/11/2025 CMP (FEMA LE) AST (SGOT) 33.0 U/L 0.0-46 .0 Not Available [facility] [address] [facility], [place], [address], 02/11/2025 09:39:08 02/12/20 25 02/11/2025 CMP (FEMA LE) altv (SGPT) 39.0 U/L 13.0-6 9.0 normal Not Available [facility] [address] [facility], [place], [address], 02/11/2025 09:39:08 02/12/20 25 02/11/2025 CMP (FEMA LE) A/G ratio 1.4 ratio Not Available [facility] [address] [facility] 1, [place], [address], 02/11/2025 09:39:08 02/12/20 25 02/11/2025 CMP (FEMA LE) ALP phos 82.0 U/L 30.0-1 40.0 normal Not Available [facility] [address] [facility], [place], [address], 02/11/2025 09:39:08 02/12/20 25 02/11/2025 CMP (FEMA LE) calcium 9.1 mg/dL 8.4-10 .5 Not Available [facility] [address] [facility], [place], [address], 02/11/2025 09:39:08 02/12/20 25 02/11/2025 CMP (FEMA LE) sodium 142.0 mmol/ L 136.0- 145.0 Not Available [facility] [address] [facility], [place], [address], 02/11/2025 09:39:08 02/12/2002/11/2025 CMP (FEMA LE) potassium 4.0 mmol/ L 3.5-5. 1 Not Available [facility] [address] [facility] 1, [place], [address], 02/11/2025 09:39:08 02/12/2002/11/2025 CMP (FEMA LE) chloride 108.0 mmol/ L 98.0-1 10.0 normal Not Available [facility] [address] [facility] [address], [place], [address], 02/11/2025 09:39:08 02/12/2002/11/2025 CMP (FEMA LE) C02 28.0 mmol/ L 22.0-3 1.0 Not Available [facility] [address] [facility] 1, [place], [address], 02/11/2025 09:39:08 02/12/2002/11/2025 CMP (FEMA LE) anion gap 6.0 calc Not Available [facility] [address] [facility] [address], [place], [address], 02/11/2025 09:39:08 02/12/2002/11/2025 CMP (FEMA LE) osmolality 292.5 calc Not Available [facility] [address] [facility] [address], [place], [address], 02/11/2025 09:39:08 02/12/20 25 02/11/2025 LIPID PROFI LE (FEMA LE) cholesterol 126.0 mg/dL 0.0-20 0.0 Not Available [facility] [address] [address], [place], [address], 02/11/2025 09:39:11 02/12/20 25 02/11/2025 LIPID PROFI LE (FEMA LE) trig 178.0 mg/dL 0.0-15 0.0 high Not Available [facility] [address] [facility] 1, [place], [address], 02/11/2025 09:39:11 02/12/20 25 02/11/2025 LIPID PROFI LE (FEMA LE) HDL - direct 30.0 mg/dL >40.0 low Not Available [facility] [address] [address], [place], [address], 02/11/2025 09:39:11 02/12/20 25 02/11/2025 LIPID PROFI LE (FEMA LE) VLDL - direct 35.6 mg/dL Not Available [facility] [address] [address], [place], [address], 02/11/2025 09:39:11 02/12/20 25 02/11/2025 LIPID PROFI LE (FEMA LE) LDL - direct 60.4 mg/dL 0.0-13 0.0 Not Available [facility] [address] [address], [place], [address], 02/11/2025 09:39:11 02/12/20 25 02/11/2025 TSH TSH 0.22 uIU/m L 0.49-3 .82 low Not Available [facility] [address] [address], [place], [address], 02/11/2025 10:47:08 02/24/2002/23/2025 TSH TSH 0.50 uIU/m L 0.49-3 .82 Not Available [facility] [address] [facility], [place], [address], 02/23/2025 12:03:30 10/02/19 25 10/01/2024 US, abdom en, compl ete No observ ation record ed. [email or web address] [facility] [address] [place], [address], 10/05/2024 08:27:23 05/04/2003/25/2025 beti r monit or No observ ation record ed. [email or web address] [facility] [facility] [address] [facility] [address], [place], [address], 05/25/2025 14:02:35 05/20/2003/25/2025 beti r monit or No observ ation record ed. [email or web address] [facility] [address] [place], [address], 05/21/2025 08:55:32 Result Notes None recorded. 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 4 09:38:00 Obesity 330189347 Active 2023 [facility] 4 09:38:24 Problem Notes None recorded. Procedures Surgical History Date Name Laterality Status Provider Name and Address Organization Details Recorded Time 08/20/20 24 mammography completed [facility] 08/24/2024 09:05:06 09/09/19 20 echocardiography completed [facility] 06/06/2023 08:42:08 08/26/19 16 Date of Last Pap Smear completed [facility] 06/06/2023 08:40:38 mammography completed [facility] 06/06/2023 08:39:30 Colonoscopy completed [facility] 06/06/2023 08:39:59 bone density scan completed [facility] 06/06/2023 08:40:17 Imaging Results None recorded. Procedure Notes None recorded. Medical Equipment None Reported. Allergies Allergen ID Allergen Name Allergen Category Reaction Reaction Severity Criticality Documentation Date Start Date Code Code System Note Provider Name and Address Organization Details Recorded Time 1209 Product containin g penicilli n (product) medicatio n nausea Not available Not available 12/03/2022 54403 8001 SNOMED [facility] 3 10:11:09 27978 sulfasala zine medicatio n itching Not available Not available 12/09/2023 9524 RxNorm [facility] 4 09:49:59 Medications Name [...] atorvasta tin at bedtime 06/06 completed LB/robert; 86543; Recorded 10/16/19 23 8:41AM by Abigail Cox LPN (Authori zed through Zeina Toledo MD), Refill Request; Refill Quantity : 0; Not Available Not Available Not Available metoprolo l succinate daily 06/06 completed robert/OSMAN; [address]776; Recorded 08/02/20 22 10:01AM by Abigail Cox LPN (Authori deborad through Zeina Toledo MD), Annotati on/Adden dum; [...] Details Last Updated DateTime 5 167.64 cm 36.8 kg/m2 124612. 06 g 97.9 [degF] 97 % 97 % 61 /min 120/80 mm[Hg] ABIGAIL RUIZ [facility] 5 15:18:16 Date Recorded Body height Body mass index (BMI) Body weight Body temperature Oxygen saturation Oxygen saturation in Arterial blood by Pulse oximetry Heart rate Systolic And Diastolic Provider Name and Address Organization Details Last Updated DateTime 5 167.64 cm 37.6 kg/m2 574170. 02 g 97.4 [degF] 97 % 97 % 60 /min 132/80 mm[Hg] RONALDO MCLEOD [facility] 5 10:19:29 Date Recorded Body height Body mass index (BMI) Body weight Body temperature Oxygen saturation Oxygen saturation in Arterial blood by Pulse oximetry Heart rate Systolic And Diastolic Provider Name and Address Organization Details Last Updated DateTime 5 167.64 cm 36.6 kg/m2 355308. 47 g 96.9 [degF] 99 % 99 % 79 /min 148/100 mm[Hg] ABIGAIL RUIZ [facility] 5 10:13:41 Social History None recorded. Functional Status Question Answer Note LastModified by Organizat ion Details LastModified Time Do you use any illicit or recreational drugs? No [email or web address] Information not available 06/06/2023 Do you or have you ever used any other forms of tobacco or nicotine? No [email or web address] Information not available 12/03/2022 What is your level of alcohol consumption? None Information not available 06/06/2023 Mental Status None recorded. Family History Relationship Description Onset Age of this Age Resolved Age Notes LastModified by Organization Details LastModified Time Mother Hypertensive disorder [email or web address] Not available 2022 10:04:17 Mother Atrial fibrillation [email or web address] Not available 07/2023 10:04:34 Mother Myocardial infarction [email or web address] Not available 06/06 10:05:06 Sister Atrial fibrillation [email or web address] Not available 07/2023 10:04:34 Sister Malignant neoplasm of kidney [email or web address] Not available 2022 10:05:18 Sister Type 1 diabetes mellitus Not available 2022 10:05:34 Father Pulmonary embolism [email or web address] Not available 2022 10:04:56 Medical History Condition Response Coronary Artery Disease N Gout N Other N Kidney Stones N Blood Diseases N Hyperthyroidism N Blood Transfusion N Breast Cancer N COPD N Hypothyroidism Y Lung Disease N Depression N Defects or Inherited Disease N Developmental or Behavioral Disorders N Breast Problem N Difficulty Swallowing N Anesthesia Complications N Anxiety Disorder N Meniere's disease N Muscle, Joint, or Bone Problems N Vision or Eye Problems N Arthritis Y Infertility N Polyps N Cancer N Stroke N Varicosities N Endometriosis N Bladder or Kidney Problems N High Cholesterol Y Liver Disease N Headaches N Fibromyalgia N Kidney Disease N Allergies/Hayfever N Heart Problems N Ear or Hearing Problems N Hospitalizations N Thyroid Problems N GI Problems N ADD/ADHD N Eating Disorder N Skin Problems N Anemia N Constipation N Mental Illness N Diabetes N Ovarian Cancer N Bedwetting N Seizures/Epilepsy N Tuberculosis N Eczema N Abuse/Domestic Violence N Diverticulitis N Asthma N Reflux/GERD N Hepatitis N [...] Influenza, split virus, trivalent, preservative 7 completed [facility] null, [facility] 10/07/2023 08:16:03 Influenza, split virus, trivalent, preservative 8 completed [facility] GREEN null, [facility] 10/07/2023 08:16:03 Influenza, adjuvanted, quadrivalent, PF 3 completed [facility], [facility] 10/07/2023 08:16:03 Influenza, high-dose, trivalent, PF 7 completed Not Available [facility] 06/21/2025 10:08:02 Influenza, adjuvanted, trivalent, PF 8 completed Not Available [facility] 06/21/2025 10:08:02 Influenza, high-dose, trivalent, PF 9 completed Not Available [facility] 06/21/2025 10:08:02 COVID-19, mRNA, LNP-S, PF, 100 mcg/0.5mL dose or 50 mcg/0.25mL dose 1 completed Not Available [facility] 06/21/2025 10:08:02 COVID-19, mRNA, LNP-S, PF, 100 mcg/0.5mL dose or 50 mcg/0.25mL dose 1 completed Not Available [facility] 06/21/2025 10:08:02 pneumococcal polysaccharide PPV23 1 completed Not Available [facility] 06/21/2025 10:08:02 COVID-19, mRNA, LNP-S, PF, 100 mcg/0.5mL dose or 50 mcg/0.25mL dose 1 completed Not Available [facility] 06/21/2025 10:08:02 Influenza, adjuvanted, quadrivalent, PF 2 completed Not Available [facility] 06/21/2025 10:08:02 COVID-19, mRNA, LNP-S, bivalent, PF, 50 mcg/0.5 mL or 25mcg/0.25 mL dose 2 completed Not Available [facility] 06/21/2025 10:08:02 COVID-19, mRNA, LNP-S, PF, 50 mcg/0.5 mL 3 completed Not Available [facility] 06/21/2025 10:08:02 Influenza, high-dose, trivalent, PF 4 completed Not Available [facility] 06/21/2025 10:08:02 COVID-19, mRNA, LNP-S, PF, 50 mcg/0.5 mL 4 completed Not Available [facility] 06/21/2025 10:08:02 Influenza, high-dose, trivalent, PF 5 completed Not Available [facility] 06/21/2025 10:08:02 COVID-19, mRNA, LNP-S, PF, 50 mcg/0.5 mL 5 completed Not Available [facility] 06/21/2025 10:08:02 Past Encounters Encounter ID Performer Location Encounter Start Date Encounter Closed Date Diagnosis/Indication Diagnosis SNOMED-CT Code Diagnosis ICD10 Code Diagnosis IMO Codes Diagnosis Note [id number] Zeina Toledo MD [facility] ([facility]) [address] [place] [id number] 5 12/03/2022 09:48:20 01/03/2023 18:03:47 Gastroesophageal reflux disease 887160551 K21.00 Hyperlipidemia 69776699 E78.5 reviewed labs Hypothyroidism 68409658 E03.4 reviewed labs, tsh wnl Essential hypertension 15594624 I10 controlled BP today Pruritic rash 23962500 L 28.2 unclear etiology. seeing derm for this now. Morbid obesity 941178690 E66.01 [id number] Zeina Toledo MD [facility] ([facility]) [address] [place] [address] [id number] 5 06/06/2023 09:43:50 06/06/2023 12:49:00 Hypertensive disorder 56231416 I10 Screening mammography 24 913227 Z12.31 appt is 1 week from today Screening for malignant neoplasm of colon 116507125 Z12.11 is not sure she wants to have one Hypothyroidism 80507386 E03.4 in February was minimally elevated 4.08 at [facility]. no med changes were made at that time. will check today. [id number] Zeina Toledo MD [facility] ([facility]) [address] [place] [address] [phone] 5 10/08/2023 16:23:08 10/08/2023 17:45:54 Hypertensive disorder 72588216 I10 Hyperlipidemia 43438819 E78.5 reviewed labs Ankylosing spondylitis 4667333 M45.9 Morbid obesity 044272782 E66.01 Stomatitis 14433062 K12. 1 likely secondary to sulfaslazi ne. she confirms her dose was raised around the same time.... Cough 41991407 R05.9 blockage sensation possibly due to edema....t rial of steroid. [id number] MELODY ED LUNA [facility] ([facility]) [address] [place] [address] [id number] 5 10/07/2023 08:03:43 10/07/2023 11:32:45 Acute upper respiratory infection 35330584 J06.9 Strep neg today. Discussed use of z-denise and tessalon for symptoms. May use throat lozenges, drink hot tea for symptom support. If you develop fever, sob, or worsening s/s then return for re-eval. [id number] Zeina Toledo MD [facility] ([facility]) [address] [place] [address] [id number] 5 12/09/2023 09:42:08 12/10/2023 12:05:05 Hyperlipidemia 17382987 E78.5 reviewed labs Hypertensive disorder 38 828256 I10 Osteoarthritis 564615025 M19.90 Hypothyroidism 56177594 E03.4 had been a little elevated and we dont have a recheck. will recehck today. Neoplasm o f uncertain behavior of skin 18956397 D48.5 unclear if recent injury since it just popped up and has a reddish appearance to me. monitor. RTC in 2 weeks for biopsy if not resolved. [id number] MELODY DE LUNA [facility] ([facility]) [address] [place] [address] [phone] 5 02/24/2024 07:59:24 02/24/2024 10:30:01 COVID-19 514522014 U07.1 Will start on paxlovid. hold atorvastat in for next 1 week.Discu ssed with pt on use of otc meds for symptom control. Quarantine at home until no fever for 24 hours. [id number] Zeina Toledo MD [facility] ([facility]) [address] [place] [id number] 5 08/12/2024 10:04:46 08/12/2024 12:41:37 Hypertensive disorder 75541805 I10 Controlled . 08/12/2024 Osteoarthritis [id number] M19.90 We will try increasing from 7.5 mg to 15 mg daily. 08/12/2024 Hypercholesterolemia 136 88026 E78.00 She will be due for fasting labs in 6 months. 08/12/2024 Screening mammography 24 865094 Z12.31 appt is 1 week from today 08/12/2024 Screening for malignant neoplasm of colon [id number] Z12.11 Refused. Does FIT tests. 08/12/24 Ankylosing spondylitis 6276152 M45.9 as per Rheum* Hypothyroidism 35450169 E03.4 recheck today. 08/12/24 [id number] Zeina Toledo MD [facility] ([facility]) [address] [place] [phone] 09/10/2024 10:26:03 09/10/2024 13:00:00 Nausea [id number] R11.0 Consider gallbladde r will obtain ultrasound 09/10/2024 Heartburn [id number] R12 I suspect most of her symptoms are due to extreme gastritis. We will treat this aggressive ly. If she has any significan t worsening she would need to report to the ER for immediate imaging. 09/10/2024 Diarrhea 41269659 R19.7 [id number] Zeina Toledo MD [facility] ([facility]) [address] [place] [phone] 10/01/2024 09:18:12 10/02/2024 09:28:37 [id number] Zeina Toledo MD [facility] ([facility]) [address] [place] [phone] 10/05/2024 15:05:07 10/07/2024 08:09:22 Abdominal colic 0421975 R10.83 u/s showed mild distention of gallbladde r but no edema. pts symptoms are now consistent ly whitandi al. refer to gen surg for consult for jeramie vs EGD. 10/05/24 Gastritis 2636261 K29.70 improved with pantoprazo le and sucralfate . 10/05/24 [id number] Zeina Toledo MD [facility] ([facility]) [address] [place] [phone] 5 02/11/2025 08:02:44 02/12/2025 10:45:33 Hyperlipidemia 70484227 E78.5 reviewed labs Hypertensive disorder 38 214693 I10 Controlled . 08/12/2024 Hypothyroidism 08583753 E03.4 recheck today. 08/12/24 [id number] Zeina Toledo MD [facility] ([facility]) [address] [place] [address] [phone] 5 02/23/2025 10:13:16 02/23/2025 13:06:38 Hypercholesterolemia 31273350 E78.00 26439 lipid panel wnl 02/23/25 Essential hypertension 08749969 I10 43184 controlled BP today 132/80. 02/23/25 Ankylosing spondylitis 0138781 M45.9 [id number] as per Rheum* started methotrexa te....give s her a MARTINEZ. chronic pain. I wish she had better response to meds as this is significan tly affecting her. 02/23/2025 Body mass index 30+ - obesity [id number] E66.9 5737396 Hypothyroidism 54557081 E03.4 elevated tsh. recheck today if still elevated then may adjust med. 02/23/25 Paroxysmal atrial fibrillation 035977533 I48.0 04484 noted on her watch. sounds regular rina. will get set up for holter monitor. We discussed that if she does go in and out of atrial fibrillati on she may need to be on an anticoagul ant. 02/23/25 Nail discoloration 30798 005 L60.8 [id number] Consider fungal study if patient wishes to pursue treatment. At this time she is not interested in starting any antifungal s so she will just let it be for now. 02/23/2025 [id number] Zeina Toledo MD [facility] ([facility]) [address] [place] [phone] 06/21/2025 10:06:16 06/21/2025 11:18:09 Atrial fibrillation 60293640 I48.91 [id number] Patient's heart rate does sound irregular today. [...] by Organization Details LastModified Time None Recorded Advance Directives Directive None Recorded Payers Insurance Date Sequence Insurance Name Policy Number Policy Miller Covered Member ID Miller Member ID Guarantor Name 06/21/2025 2 [facility] - [facility] F (MEDICARE SUPPLEMENT) [id number] Sybil Perry [id number] Sybil James Vicky 06/21/2025 1 [place]ICARE [place]: [place] Sybil James Vicky [id number] Sybil Perry 09/10/2024 1 [employer] (MEDICARE REPLACEMENT/ ADVANTAGE - PPO) Sybil James Vicky [id number] Sybil James Vicky 06/21/2025 [place] - [place] - PART A - [facility] (MEDICARE) Sybil Perry [id number] Sybil Perry Notes Date Note Type Note Provider Name and Address Organization Details Recorded Time text/html ROS as noted in the HPI the sucralfate gets stuck in her throat.no major hb episodes since starting it though so she is better.she doesn't get the reflux up into her throat like she did.still having stomach issues...doesn't matter what I eat, just nothing really agrees with me... Zeina Toledo MD [address] [place] [address], [phone], [facility], [place] 10/05/2024 15:59:05 5 text/html they started her on methotrexate. she is not sure if i is helping - knows she has to give it time.Patient is here - nt doing the best. tired of hurting Patient knows that activity would help her pain but it seems like any physical activity leads to more pain. We discussed possible aquatic therapy Patient mentions that off and on her iWatch states that she is in atrial fibrillation. She has a thickened discolored great toenail Zeina Toledo MD [address] [place] [address], [phone], [facility] 02/23/2025 18:15:49 5 text/html DyspneaReported by PatientHPIFor quality, patient [...] ventricular tachycardia were mentioned. Zeina Toledo MD [address] [place] [address], [phone], [facility] 06/21/2025 11:18:08 OBGyn Episode No OBEpisode recorded.
[2025-06-21 10:35] LABS: Alanine Aminotransferase 25 U/L (0-33); Albumin Level 4.2 g/dL (3.5-5.2); Alkaline Phosphatase 115 U/L (35-105); Anion Gap 17.6 (5-19); Aspartate Amino Transferase 21 U/L (0-32); Blood Urea Nitrogen 16 mg/dL (8-23); Calcium 9.3 mg/dL (8.5-10.5); Carbon Dioxide 23 mmol/L (22-29); Chloride 104 mmol/L (98-107); Creatinine Clr Calc Pharmacy 75.3619; Globulin 2.8 g/dL (1.3-4.6); Glucose 97 mg/dL (65-115); NT Pro B Type Natriuretic Pept 4392 pg/mL (0-125); Osmolality Calculated 291 mOsm/kg (285-295); Potassium 4.6 mmol/L (3.5-5.1); Sodium 140 mmol/L (136-145); Total Protein 7.0 g/dL (6.6-8.7)
[2025-06-21 11:07] VITALS: BP 111/93; PULSE 72; O2SAT 98
== END 2025-06-21 11:08 | disposition home or self-care (01) ==
PROVIDERS: Emergency Provider Emergency Medicine; PCP Family Medicine
DX: R00.2 Palpitations (principal); I10 Essential (primary) hypertension
CPT/HCPCS: 71045; 80053; 83880; 85025; 85610; 93005; 99285

== ENCOUNTER 2025-06-24 07:24 | Outpatient (CLI) | payer MEDICARE, OTHER, SELFPAY ==
[2025-06-24 07:44] LABS: Hematocrit 40.5 % (36-47); Hemoglobin 13.00 g/dL (11.27-16.99); Mean Corpuscular HGB Conc 32.1 g/dL (30-55); Mean Corpuscular Hemoglobin 30.3 pg (27-33); Mean Corpuscular Volume 94.4 fl (85-98); Nucleated Red Blood Cells % 0 %; Platelet Count 173 10^3/cmm (157-399); Red Blood Count 4.29 10^6/uL (3.85-5.65); White Blood Count 4.85 10^3/uL (3.29-11.43)
[2025-06-24 08:11] LABS: Alanine Aminotransferase 21 U/L (0-33); Albumin Level 3.9 g/dL (3.5-5.2); Alkaline Phosphatase 102 U/L (35-105); Aspartate Amino Transferase 18 U/L (0-32); Globulin 2.7 g/dL (1.3-4.6); Total Protein 6.6 g/dL (6.6-8.7)
== END 2025-06-24 07:25 | disposition home or self-care (01) ==
LOC: LAB 07:26
PROVIDERS: PCP Family Medicine; Visit Provider Internal Medicine Rheumatology
DX: Z79.899 Other long term (current) drug therapy (principal)
CPT/HCPCS: 80076; 82565; 85025; 85651; 86140

== ENCOUNTER → 2025-06-28 09:42 | Outpatient (BNVA) | payer MEDICARE, OTHER, SELFPAY | PROVIDERS: PCP Family Medicine; Referring Provider Family Medicine; Visit Provider Internal Medicine Cardiovascular Disease | DX: R01.1 Cardiac murmur, unspecified (principal); I47.19 Other supraventricular tachycardia; R79.89 Other specified abnormal findings of blood chemistry; R06.09 Other forms of dyspnea; R06.02 Shortness of breath; I47.10 Supraventricular tachycardia, unspecified | CPT/HCPCS: 36415; 83735; 84443; 99204 ==

== ENCOUNTER 2025-07-01 09:31 | Outpatient (CLI) | payer MEDICARE, OTHER, SELFPAY ==
--- NOTE | 2025-07-01 | ECG_ITS ---
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 Interpretive Statements Lung unchanged pre/post procedure; Intraprocedure shortess of breath;; Symptoms resoled by discharge PROCEDURE: At the baseline, the EKG revealed sinus bradycardia with a normal ST Ts. The baseline heart was 59 bpm with a blood pressue of 167/84 mm of Hg Lexiscan was infused over a period of 20 seconds. A total of 0.4 milligrams of Lexiscan was infused. The stress phase was continued for a total of 5 minutes. Heart rate at the end of the stress phase was 80 bpm with a blood pressure 147/88 mm of Hg. The EKG at the peak infusion revealed no significant changes. Sestamibi was injected 20 seconds after the Lexiscan infusion. Heart rate at the end of the recovery phase was 64 bpm with a blood pressure of 179/78 mm of Hg. CONCLUSION: 1. No significant EKG changes with the LexiScan infusion 2. No LexiScan induced chest pain or cardiac arrhythmia 3. Normal blood pressure and heart rate response 4. Sestamibi/sestamibi perfusion scan pending; see separate report. Electronically Signed On 07-02-2025 20:12:50 ACID MIXER by Sunni Rangel M.D. [email or web address]
--- NOTE | 2025-07-01 09:48 | NMCV_ITS ---
NM stephen perf SPECT r/s* [id number] Sybil Perry Age: 74 Gender: F : 1950 Exam Date: 07/01/2025 10:42 Ordering Phys: Emil Arvizu MD ([email or web address]) Technologist: AMANDA Castellano Exam Location: [facility] Indications: cp STRESS TEST Please see separate stress test report in [facility] for full findings IMAGE PROTOCOL Rest/Stress 1 Lexiscan Day Radiopharmaceutical Dose (mCi) Administration Site Administered by Rest: Tc-99m 10.3 IV Stephy Mckinney, REMOTE SENSING ANALYST Sestamibi Stress:Tc-99m 32.7 IV Stephy Mckinney, REMOTE SENSING ANALYST Sestamibi Rest: 01-Jul-2025 60 Discovery 630 Stress: 01-Jul-2025 30 Discovery 630 0.4mg Lexiscan. Supine position only as patient was unable to lay prone. SPECT RESULTS Technical Quality: Good Raw Data Analysis: Normal Image Corrections: No attenuation or motion correction applied Summed Stress Score: 3 Summed Rest Score: 0 Summed Difference Score: 3 PERFUSION FINDINGS Small areas of slightly decreased tracer uptake involving the mid inferior, mid inferolateral and apical segment LV apex. Some reversibility was noted in these areas at rest FUNCTIONAL RESULTS (calculated via Gated SPECT) Stress Image LV EF (%): 78 Stress EDV (mL):82 TID: 1.02 Stress ESV (mL):18 FUNCTIONAL FINDINGS: Segmental wall motion analysis revealing no gross wall motion abnormalities IMPRESSIONS 1. Myocardial perfusion imaging revealing small areas of reversible defect involving the mid inferior, mid inferolateral and LV apex suggesting very small area of ischemia in the distribution of the right coronary artery/left anterior descending artery. 2. Normal LV ejection fraction of 78%. 3. LV wall motion analysis revealing no gross wall motion abnormalities. 4. Normal LV volume No similar previous studies are available for comparison Dr Sunni Rangel MD [facility] (Electronically Signed) Final Date: 01 July 2025 12:41 S
[2025-07-01 10:02] VITALS: BMI 36.4
[2025-07-01] MEDS: aminophylline 25 mg/mL SDV 20 mL IVP (11:22)
[2025-07-01 11:37] VITALS: BP 179/89; PULSE 65
== END 2025-07-01 09:32 | disposition home or self-care (01) ==
LOC: CDL 09:35
PROVIDERS: PCP Family Medicine; Visit Provider Internal Medicine Cardiovascular Disease
DX: R06.09 Other forms of dyspnea (principal); R93.1 Abnormal findings on diagnostic imaging of heart and coronary circulation
CPT/HCPCS: 36415; 78452; 93017; 96374; A9500; J0280; J2785

== ENCOUNTER 2025-07-14 07:27 | Outpatient (CLI) | payer MEDICARE, OTHER, SELFPAY ==
--- NOTE | 2025-07-14 07:45 | USCV_ITS ---
Vicky Sybil Age: 74 Gender: F : 1950 Exam Date: 07/14/2025 07:59 Ordering Phys: Emil Arvizu MD ([email or web address]) Technologist: Exam Location: [facility] Indication: cp murmur BP: 148 / 80 HR: 56 Rhythm: Sinus Technical Quality: Adequate MEASUREMENTS (Male / Female) Normal Values 2D ECHO LV Diastolic Diameter PLAX 3.8 cm 4.2 - 5.9 / 3.9 - 5.3 cm IVS Diastolic Thickness 1.4 cm 0.6 - 1.0 / 0.6 - 0.9 cm IVS Systolic Thickness 2.5 cm LVPW Diastolic Thickness 1.3 cm 0.6 - 1.0 / 0.6 - 0.9 cm LVPW Systolic Thickness 1.7 cm LVOT Diameter 2.1 cm LV Ejection Fraction 2D Teich 64.3 % LV Ejection Fraction MOD 4C 73.2 % LV Ejection Fraction MOD 2C 68.9 % LV Ejection Fraction 2C AL 68.9 % LA Diameter 3.8 cm RA Systolic Volume 4C AL 37.1 ml RA Systolic Volume 4C MOD 35.6 ml LA Sys Volume AL 49.3 cm cubed LA Sys Volume Index AL 22.1 cm cubed/m squared Aorta at Sinotubular Diameter 3.4 cm M-MODE LA Ao Ratio MM 1.3 AV Cusp Separation MM 2.4 cm DOPPLER AV Peak Velocity 159.7 cm/s LVOT Peak Velocity 98.0 cm/s AV Area Cont Eq vti 2.6 cm squared AV Area Cont Eq pk 2.2 cm squared MV Peak Velocity 110.0 cm/s MV Area PHT 3.6 cm squared Mitral E to A Ratio 1.3 TV Peak Velocity 235.5 cm/s TR Peak Velocity 305.0 cm/s TR Peak Gradient 37.2 mmHg TV Peak E Velocity 100.0 cm/s PV Peak Velocity 95.0 cm/s FINDINGS Left Ventricle Normal left ventricular size, systolic function and ejection fraction is 68%. Mild left ventricular hypertrophy. Normal left ventricular diastolic function. Right Ventricle Normal right ventricular size and systolic function. Right Atrium Normal right atrial size. Left Atrium Normal left atrial size. IA Septum Normal appearance of the interatrial septum. Mitral Valve Normal mitral valve structure. Mild mitral regurgitation. Aortic Valve Aortic valve not well visualized. No aortic valve stenosis. Mild aortic valve regurgitation. Tricuspid Valve Normal tricuspid valve structure. Trace regurgitation. Mild pulmonary hypertenstion, PASP 40 mmHg. Pulmonic Valve Normal pulmonic valve structure. No pulmonic valve stenosis or regurgitation. Pericardium No pericardial effusion. Aorta Normal diameter of the aortic root and ascending thoracic aorta. IVC Normal IVC diameter. CONCLUSIONS Normal left ventricular size, systolic function and ejection fraction is 68%. Mild left ventricular hypertrophy. Normal right ventricular size and systolic function. Aortic valve not well visualized. No aortic valve stenosis. Mild aortic valve regurgitation. Mild mitral regurgitation. Mild pulmonary hypertenstion, PASP 40 mmHg. Emil Arvizu MD, FACC (Electronically Signed) Final Date: 20 July 2025 20:58 S
== END 2025-07-14 07:28 | disposition home or self-care (01) ==
LOC: RAD 07:28
PROVIDERS: PCP Family Medicine; Visit Provider Internal Medicine Cardiovascular Disease
DX: R06.02 Shortness of breath (principal); R07.9 Chest pain, unspecified; R01.1 Cardiac murmur, unspecified; I51.7 Cardiomegaly; I35.1 Nonrheumatic aortic (valve) insufficiency; I34.0 Nonrheumatic mitral (valve) insufficiency; I27.20 Pulmonary hypertension, unspecified
CPT/HCPCS: 93306

== ENCOUNTER 2025-07-20 05:54 | Outpatient (CLI) | payer MEDICARE, OTHER, SELFPAY ==
[2025-07-20] VITALS (14 sets, daily range): BP systolic 103–180; BP diastolic 69–101; PULSE 49–62; RESP 13–21; TEMP 36.4; O2SAT 95–98; BMI 36.6
--- NOTE | 2025-07-20 06:00 | XACV_ITS ---
Exam Room: 2 Ht: 168 cm Wt: 103 kg BSA: 2.23 m2 Gender: Female : 1950 Any Known Allergies: Other Exam Priority: Routine Procedure(s): Procedure Description: Diagnostic procedure Procedure Description: Left Heart Catheterization Procedure Description: Left ventriculography Procedure Description: Coronary Angiography Diagnostic Cath Status: Elective Diagnostic Findings * INDICATION: Dyspnea on exertion/abnormal stress test. * No significant disease noted in the Left Main, Left Anterior Descending, Right, or Circumflex coronary arteries. * Coronary angiography shows right dominance. Conclusions 1. No significant disease noted in the Left Main, Left Anterior Descending, Right, or Circumflex coronary arteries. 2. Normal left ventricular systolic function. Ejection fraction of 55%. Recommendations * Aggressive risk factor modification. * Outpatient cardiology follow up in 2 weeks. Interventional RX Recommendation: medical therapy and/or counseling Diagnostic RX Recommendation: medical therapy and/or counseling Anticoagulation: Heparin Ventriculography Ejection Fraction: 55.0 % Pressures Phase:Rest AO : 152 / 77 ( 110 ) @ 8:14:00 AM 152 / 78 ( 111 ) @ 8:14:00 AM LV : 142 / -1 / 22 @ 8:13:00 AM 146 / 3 / 25 @ 8:14:00 AM 141 / 2 / 23 @ 8:14:00 AM Valves Phase:DefaultPhase AV : 0.0 @ 8:19:57 AM AV Mean Gradient: 0.0 @ 8:19:57 AM Clinical Evaluation EBL: 5mL-10mL Procedural Details Procedure Consent Obtained. Admit Source: Out Patient. Hemodynamic formulas in Rest were re-calculated based on hemoglobin value from 07/20/2025 12:00:00 AM. Pre-Procedure Time Out. Identified patient by full name and date of as verbalized by the patient/guarantor. Does the consent match the physician's order: Yes. Accurate & Complete Informed Consent: Yes. Inpatient/Outpatient History & Physical on Chart: Yes. If H&P is completed, is and addenduem needed: No; If yes, is the addendum complete: N/A. Visualize and Verify Site with Patient/Guarantor: N/A. Relevant Radiology Images available: Yes. The risks, benefits, and alternatives of sedation and/or procedure were discussed by physician. The patient agrees to continue. Procedure started. [facility] Clinical Fraility Score: 3: Managing Well. Psychology Teacher Indications: Other. Chest Pain Symptom Assessment: Typical Angina Symptoms. Correct patient, site and procedure confirmed by cath team. Current diagnosis: Dyspnea on exertion, Abnormal stress test. PERRLA. 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 Lungs clear x 5 lobes. IV Site on Arrival: 20 gauge in the left anticubital. IV Fluids: 0.9% NaCl at KVO. 0 mL infused prior to engineering lab technician. Pre Procedural Pulses: bilateral radial was 3+. Pre Procedural Pulses: bilateral posterior tibial was 1+. Pre Procedural Pulses: right dorsalis pedis was 3+. Pre Procedural Pulses: left dorsalis pedis was 1+. Oxygen started at 2liters/min via nasal canula. right radial was prepped with chloroprep then draped in the usual sterile fashion. right groin was prepped with chloroprep then draped in the usual sterile fashion. Physician notified. Baseline sample Acquired. HR: 66 BPM. Physician arrived. Physician scrubbed in. Immediate Pre-Procedure Time Out. Correct Patient: Yes; Correct Procedure: Yes; Correct Site: Yes; Correct Patient Position: Yes; Correct Supplies: Yes; Dried Flammable Prep: Yes; Blood Products Available: No;. Lidocaine 1% infiltrated to the right radial. Arterial access obtained. A 5 omani TIG catheter in over wire. Multiple views taken of left coronary artery. Catheter redirected to the RCA. Multiple views taken of right coronary artery. Catheter removed over the exchange wire. A 5 omani Angled Pig catheter in over wire. EDP Sample taken: LV 142/-2,22; HR: 58 BPM; SpO2: 96%. LV gram performed in TORO @ 10 mL/second for a total of 30 mL. EDP Sample taken: LV 146/3,25; HR: 60 BPM; SpO2: 95%. Pullback taken: LV 141/2,23; AO 152/77(110); Mean: 0mmHg, Peak to Peak: 0mmHg, SEP: 4sec/min; HR: 64 BPM; SpO2: 95%. Catheter removed over the exchange wire. A TR Band was successful obtaining hemostatsis at the Right Radial artery insertion site. Physician scrubbed out. Post Procedure: Pulses reassessed and unchanged. PERRLA. 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 No VTE prophylaxis required. Medication's Wasted: Lidocaine 1% = 18 mL. Medication's Wasted: Nitro = 49.8 mg. Medication's Wasted: Heparin = 1000 units. Medication's Wasted: Other = Fentanyl 50mcg. Total IV fluids: 25 mL. Post-op diagnosis: Non-obstructive CAD. Complications: None. Estimated blood loss: 5mL-10mL. Responsiveness - Normal response to verbal stimuli; alert and oriented, PERRLA. Airway - Unaffected, no intervention required; spontaneous ventilation. Circulation: W/N/L, pulses unchanged. Nausea/Vomiting: No. Procedure completed. Patient transferred by stretcher to CPRU. Vital chart was stopped. Access Site Site: Right Radial artery Sheath Size: 6 Fr Hemostasis Method: TR Band Hemostasis Success: Successful Procedure Medications Start: 7:55 AM Stop: 7:55 AM Medication: Versed Amount: 1 mg Route: I.V. Start: 7:55 AM Stop: 7:55 AM Medication: Fentanyl Amount: 50 mcg Route: I.V. Start: 7:59 AM Stop: 7:59 AM Medication: Versed Amount: 1 mg Route: I.V. Start: 8:00 AM Stop: 8:00 AM Medication: Nitrogylcerin Amount: 200 mcg Route: I.A. Start: 8:09 AM Stop: 8:09 AM Medication: Heparin Amount: 5000 units Route: I.V. I, the attending physician, have reviewed and verified all procedure medications. Yes, all medications given per verbal order History/Risk Factors Hypertension: Yes Dyslipidemia: Yes Peripheral Arterial Disease (PAD): No Myocardial Infarction (NM): No Obesity: Yes Renal Disease: No Tobacco Use: Never Prior Interventions PCI: No CABG: No Valve Surgery: No Report Signatures Finalized by Shane Pathak MD on 07/20/2025 09:25 AM
[2025-07-20 06:21] LABS: Hematocrit 42.9 % (36-47); Hemoglobin 14.10 g/dL (11.27-16.99); Mean Corpuscular HGB Conc 32.9 g/dL (30-55); Mean Corpuscular Hemoglobin 31.1 pg (27-33); Mean Corpuscular Volume 94.7 fl (85-98); Nucleated Red Blood Cells % 0 %; Platelet Count 191 10^3/cmm (157-399); Red Blood Count 4.53 10^6/uL (3.85-5.65); White Blood Count 6.03 10^3/uL (3.29-11.43)
[2025-07-20 06:41] LABS: Anion Gap 11.8 (5-19); Blood Urea Nitrogen 13 mg/dL (8-23); Calcium 9.1 mg/dL (8.5-10.5); Carbon Dioxide 29 mmol/L (22-29); Chloride 104 mmol/L (98-107); Glucose 98 mg/dL (65-115); Osmolality Calculated 292 mOsm/kg (285-295); Potassium 3.8 mmol/L (3.5-5.1); Sodium 141 mmol/L (136-145)
--- NOTE | 2025-07-20 07:50 | P.HPUD_ITS ---
Surgery/Procedure H&P Update DATE OF PROCEDURE: July 20, 2025 DATE H&P PERFORMED: 06/28/25 H&P UPDATE INFORMATION: I have reviewed H&P completed within last 30 days, I have examined patient prior to procedure and No changes to prior documentation PREOP DIAGNOSIS: Dyspnea on exertion/ abnormal stress test PRIMARY INDICATION FOR PROCEDURE: Dyspnea on exertion/ abnormal stress test PLANNED PROCEDURE: Operation Date: 07/20/25 07:00 Proposed Procedures p Cardiac Catheterization - [facility] w/wo LV & Coros(Left) - Shane Pathak M.D Possible percutaneous coronary intervention PATIENT REASSESSED PRIOR TO SEDATION, WITH NO CHANGE NOTED: Yes PHYSICAL EXAM: alert, oriented x 3, clear to auscultation bilaterally and regular rate & rhythm AIRWAY EVAL/ANESTHESIA PLAN: normal airway, ASA III, Local Anesthesia, Risks, benefits & alternatives of sedation and/or procedure discussed and Patient agrees to continue as planned ADDITIONAL INFORMATION: Moderate sedation
--- NOTE | 2025-07-20 08:30 | PC.NURSE ---
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 pt alert and oriented but also drowsy. pt complains of no pain. tr band on right wrist with no hematoma. pt and family educated on restrictions with everyone acknowledging. will continue to educate throughout recovery as well. pt to be monitored per protocol and will be dc after requirements are met.
== END 2025-07-20 11:41 | disposition home or self-care (01) ==
PROVIDERS: PCP Family Medicine; Visit Provider Internal Medicine
DX: R94.39 Abnormal result of other cardiovascular function study (principal); R06.09 Other forms of dyspnea; I10 Essential (primary) hypertension; E78.5 Hyperlipidemia, unspecified; E66.9 Obesity, unspecified; Z68.36 Body mass index [BMI] 36.0-36.9, adult; K21.9 Gastro-esophageal reflux disease without esophagitis; E03.9 Hypothyroidism, unspecified; I47.10 Supraventricular tachycardia, unspecified; Z82.49 Family history of ischemic heart disease and other diseases of the circulatory system; Z80.0 Family history of malignant neoplasm of digestive organs
CPT/HCPCS: 36415; 80048; 85025; 93458; 99152; C1769; C1887; C1894; J1644; J2250; J3010; J3490; J7030; J9999; Q0163; Q9967

== ENCOUNTER → 2025-07-26 08:43 | Outpatient (BNVA) | payer MEDICARE, OTHER, SELFPAY | PROVIDERS: PCP Family Medicine; Visit Provider Internal Medicine Cardiovascular Disease | DX: R01.1 Cardiac murmur, unspecified (principal); I47.19 Other supraventricular tachycardia; I11.0 Hypertensive heart disease with heart failure; I50.32 Chronic diastolic (congestive) heart failure; R06.09 Other forms of dyspnea | CPT/HCPCS: 99214 ==